=== PATIENT | female | born 2000 | race American Indian/Alaskan Native ===

== ENCOUNTER 2023-03-29 16:19 | Outpatient (REF) | payer MEDICAID, SELFPAY ==
[2023-03-29 17:22] LABS: Basophils Percent Auto 0.2 % (0-2); Eosinophils Percent Auto 0.3 % (0-4); Hemoglobin 13.2 g/dl (12.0-16.0); Imm Gran Abs Auto 0.05 X10*3/uL (0.00-0.03); Imm Gran Pct Auto 0.4 % (0.0-0.4); Lymphocytes Absolute Auto 1.7 X10*3/uL (1.2-4.9); Lymphocytes Percent Auto 14.5 % (20-40); MANUAL DIFF FLAG NO; Mean Corpuscular HGB Conc 33.8 g/dl (31.0-35.0); Mean Corpuscular Hemoglobin 29.1 pg (27.0-33.0); Mean Corpuscular Volume 85.9 fL (80.0-98.0); Mean Platelet Volume 10.6 fL (9.4-12.3); Monocytes Absolute Auto 0.5 X10*3/uL (0.1-1.2); Monocytes Percent Auto 4.2 % (2-11); Neutrophils Absolute Auto 9.6 x10*3/uL (2.0-8.3); Neutrophils Percent Auto 80.4 % (45-73); Platelet Count 275 X10*3/uL (160-400); Red Blood Count 4.54 X10*6/uL (4.20-5.50); Red Cell Distribution Width 12.1 % (11.0-16.0)
[2023-03-29 17:32] LABS: Estimated Average Glucose 85 mg/dL; Hemoglobin A1c % 4.6 % (<6.0)
[2023-03-29 18:52] LABS: Alanine Aminotransferase 14 U/L (0-31); Alkaline Phosphatase 65 U/L (39-117); Anion Gap 14 (12-20); Aspartate Amino Transferase 14 U/L (5-31); Bilirubin Total 0.3 mg/dL (0.0-1.0); Blood Urea Nitrogen 12 mg/dL (9-16); Calcium 9.3 mg/dL (8.4-10.2); Carbon Dioxide 22 mmol/L (22-29); Chloride 107 mmol/L (96-108); Estimated Glomerular Filt Rate > 60; Glucose Random 83 mg/dL (60-115); Potassium 4.6 mmol/L (3.3-5.1); Sodium 138 mmol/L (135-145); Total Protein 7.4 g/dL (6.5-8.0)
[2023-03-29 19:12] LABS: Free T4 (Free Thyroxine) 1.03 ng/dL (0.71-1.85); HCG Quantitative 271 mIU/mL; Thyroid Stimulating Hormone 0.74 uIU/mL (0.32-4.0)
== END 2023-03-29 16:20 | disposition home or self-care (01) ==
LOC: HO.HHCL 16:19
PROVIDERS: Visit Provider Student in an Organized Health Care Education/Training Program
DX: Z00.00 Encounter for general adult medical examination without abnormal findings (principal)
CPT/HCPCS: 36415; 80053; 83036; 84439; 84443; 84702; 85025

== ENCOUNTER 2023-03-30 20:05 | Emergency (ER) | payer MEDICAID, SELFPAY ==
--- NOTE | ~2023-03-30 | US_ITS ---
EXAMINATION: US , LESS THAN 14 WEEKS CLINICAL INFORMATION: Bleeding. test pending COMPARISON: None. TECHNIQUE: Transcutaneous early obstetrical ultrasound. The patient was asked to void completely and reexamined vaginally to better characterize the uterine contents and adnexa FINDINGS: There is no definite intrauterine . There is no pole, cardiac activity, somatic activity, yolk sac or definite gestational sac. Cardiac activity was not present. Somatic activity was not present. A yolk sac is not demonstrated There is no suspicious abnormality in the region of the cervix. The cervix measures approximately 3.5 cm. The uterine contour is smooth. There is no decidual reaction. The endometrium measures approximately 1.3 cm. No focal abnormality of the myometrium. Placenta findings: The placenta is not demonstrated. No large adnexal mass. The right ovary measures approximately 3.4 x 2.8 x 3.0 cm. No suspicious right adnexal mass or collection. The left ovary measures approximately 3.0 x 1.7 x 1.7 cm. No suspicious left adnexal mass or collection. Measurements include: No gestational sac demonstrated No yolk sac demonstrated No pole demonstrated The estimated gestational age based upon menstrual dating is 4 weeks 5 days No cardiac activity demonstrated. survey: Not applicable There is no significant free pelvic fluid. US/US OB pelvic and transvaginal IMPRESSION: No intrauterine gestational sac. No findings which confirm an intrauterine . The patient should be managed on the basis of the history, physical, and serial quantitative beta-hCG
--- NOTE | 2023-03-30 20:11 | ED_ITS ---
HPI - Female Genitourinary General Chief complaint: Vaginal Bleeding Stated complaint: vaginal spotting + Time Seen by Provider: 03/30/23 21:31 Source: patient and old records reviewed Mode of arrival: ambulatory Limitations: no limitations History of Present Illness HPI Narrative: 22-year-old currently about 5 weeks presents to the ER for evaluation of spotting. She states her LMP was 02/25. She found out she was yesterday when she had lab workup done at the [facility] for nausea and headache. She states she had 1 episode of very light vaginal spotting when she wiped today at work. She denies any pelvic pain or cramping. No fever or chills. No vomiting. No passage of blood clots or vaginal discharge. She had an early miscarriage in July of this year as well as a miscarriage at around 3 months gestation a few years ago. MD elicited complaint: vaginal bleeding Pertinent past history: prior miscarriages Onset (ago): hour(s) Location of symptoms: vaginal Severity: mild Vaginal discharge: none Vaginal bleeding: scant Exacerbating factors: none Associated symptoms: denies other symptoms Sexual activity: Yes Patient : Yes Date of Last Menstrual Period: 03/28/23 Related Data : 3 Para: 0 Total number of abortions (spontaneous and elective): 2 Allergies Allergy/AdvReac Type Severity Reaction Status Date / Time famotidine [From Pepcid] Allergy Rash Verified 03/30/23 20:11 Review of Systems Review of Systems: Yes all other systems are reviewed and are negative PMFSH Past Medical History : 3 Para: 0 Total number of abortions (spontaneous and elective): 2 Date of Last Menstrual Period: 03/28/23 Social History Social History Advance Directives: No Advance Directives Information Provided: No Physical Exam Vital Signs: Vital Signs: Last Vital Signs Temp 98.5 F 03/30/23 22:19 Pulse 74 03/30/23 22:19 Resp 16 03/30/23 22:19 BP 119/70 03/30/23 22:19 Pulse Ox 100 03/30/23 22:19 O2 Del Method Room Air 03/30/23 22:19 BMI result Body Mass Index 39.0 Appearance: Alert. Oriented X3. No acute distress. Head: normocephalic, atraumatic. Eyes: Pupils equal, round and reactive to light. ENT: Pharynx normal. No tonsillar swelling or exudate. Neck: Normal inspection. Neck supple. CVS: Normal heart rate and rhythm. Pulses normal. Respiratory: No respiratory distress. Breath sounds normal. Abdomen: Soft and nontender. +BS x4. Pelvic deferred Skin: Skin warm and dry. Normal skin color. Normal skin turgor. No rashes. Extremities: No lower extremity edema. No joint swelling. Neuro/psych: Oriented X 3. grossly normal, nonfocal. Normal speech and cognition. Course Course Course Narrative: RME: 22-year-old female at 4 weeks 5 days gestation c/o bright red vaginal spotting when wiping x today. LMP 02/25/23. Admits was seen at [facility] [place] yesterday and confirmed w/labs as patient was feeling unwell yesterday w/[place] & dizziness. denies discharge or abdominal pain. Admits went to the bathroom just [employer] and did not see blood Labs, UA, Pelvis US ordered Full HPI, ROS and PE to be performed by primary ED provider. Medical Decision Making Medical Decision Making [facility] Narrative: 22-year-old currently 5 weeks presents to the ER for evaluation of vaginal spotting x1 today. She is anxious and nervous due to her history of 2 miscarriages in the past. She has had no pain or cramping. Beta HCG went from 270 to 400 today. US did not show any evidence of IUP or adenxal masses. most likely due to early stage of . cannot rule out ectopic at this time. Importance of follow- up was discussed with the patient as well as possibility of normal verses early miscarriage. Patient was advised on return precautions and will follow-up next week for repeat labs. She is stable for discharge home. Differential Diagnosis Differential Diagnoses: The differential diagnosis associated with the presentation includes early stage of , implantation bleeding, spontaneous miscarriage, ectopic Lab Data [facility] Lab Attestation statement: I reviewed the patient's lab results. Mild anemia, mild leukocytosis, slight increase in beta hCG 03/30/23 20:27 03/30/23 20:27 Labs: Lab Results 03/30/23 03/30/23 03/30/23 Range/Units 20:27 20:27 20:27 WBC 11.1 H (4.8-10.8) X10*3/uL RBC 4.30 (4.20-5.50) X10*6/uL Hgb 12.5 (12.0-16.0) g/dl Hct 36.5 L (37.0-47.0) % MCV 84.9 (80.0-98.0) fL MCH 29.1 (27.0-33.0) pg MCHC 34.2 (31.0-35.0) g/dl RDW 12.2 (11.0-16.0) % Plt Count 242 (160-400) X10*3/uL MPV 10.2 (9.4-12.3) fL Immature Gran % (Auto) 0.2 (0.0-0.4) % Neut % (Auto) 68.8 (45-73) % Lymph % (Auto) 25.6 (20-40) % [place] % (Auto) 4.4 (2-11) % Eos % (Auto) 0.6 (0-4) % Baso % (Auto) 0.4 (0-2) % Lymph # (Auto) 2.8 (1.2-4.9) X10*3/uL [place] # (Auto) 0.5 (0.1-1.2) X10*3/uL Eos # (Auto) 0.1 (0.0-0.4) X10*3/uL Baso # (Auto) 0.0 (0.0-0.2) X10*3/uL Abs Immat Gran (auto) 0.02 (0.00-0.03) X10*3/uL Absolute Neuts (auto) 7.6 (2.0-8.3) x10*3/uL Absolute Nucleated RBC 0.000 (0.0-0.012) X10*3/uL Nucleated RBC % (auto) 0.0 (0.0-0.2) /100WBC Sodium 139 (135-145) mmol/L Potassium 3.6 D (3.3-5.1) mmol/L Chloride 109 H (96-108) mmol/L Carbon Dioxide 24 (22-29) mmol/L Anion Gap 10 L (12-20) BUN 13 (9-16) mg/dL Creatinine 0.73 (0.5-1.4) mg/dL Estim Creat Clear Calc 130.0 Estimated GFR > 60 Random Glucose 124 H (60-115) mg/dL Calcium 9.1 (8.4-10.2) mg/dL Total Bilirubin 0.4 (0.0-1.0) mg/dL Direct Bilirubin 0.2 (0.0-0.5) mg/dL AST 14 (5-31) U/L ALT 12 (0-31) U/L Alkaline Phosphatase 62 (39-117) U/L Total Protein 7.1 (6.5-8.0) g/dL Albumin 3.8 (3.5-5.0) g/dL Lipase 15 (8-78) U/L Beta HCG, Quant 403 mIU/mL Urine Color Urine Appearance Urine pH (5.0-9.0) Ur Specific [place] (1.005-1.025) Urine Protein (Neg-Trace) mg/dL Urine Glucose (UA) (Negative) mg/dL Urine Ketones (Negative) mg/dL Urine Blood (Negative) Urine Nitrite (Negative) Ur Leukocyte Esterase (Negative) Urine RBC (0-2) /HPF Urine WBC (0-5) /HPF Ur Squamous Epith Cells (0-2) /HPF Urine Bacteria (None Seen) Hyaline Casts (0-2) /LPF Blood Type A Positive 03/30/23 Range/Units 22:25 WBC (4.8-10.8) X10*3/uL RBC (4.20-5.50) X10*6/uL Hgb (12.0-16.0) g/dl Hct (37.0-47.0) % MCV (80.0-98.0) fL MCH (27.0-33.0) pg MCHC (31.0-35.0) g/dl RDW (11.0-16.0) % Plt Count (160-400) X10*3/uL MPV (9.4-12.3) fL Immature Gran % (Auto) (0.0-0.4) % Neut % (Auto) (45-73) % Lymph % (Auto) (20-40) % [place] % (Auto) (2-11) % Eos % (Auto) (0-4) % Baso % (Auto) (0-2) % Lymph # (Auto) (1.2-4.9) X10*3/uL [place] # (Auto) (0.1-1.2) X10*3/uL Eos # (Auto) (0.0-0.4) X10*3/uL Baso # (Auto) (0.0-0.2) X10*3/uL Abs Immat Gran (auto) (0.00-0.03) X10*3/uL Absolute Neuts (auto) (2.0-8.3) x10*3/uL Absolute Nucleated RBC (0.0-0.012) X10*3/uL Nucleated RBC % (auto) (0.0-0.2) /100WBC Sodium (135-145) mmol/L Potassium (3.3-5.1) mmol/L Chloride (96-108) mmol/L Carbon Dioxide (22-29) mmol/L Anion Gap (12-20) BUN (9-16) mg/dL Creatinine (0.5-1.4) mg/dL Estim Creat Clear Calc Estimated GFR Random Glucose (60-115) mg/dL Calcium (8.4-10.2) mg/dL Total Bilirubin (0.0-1.0) mg/dL Direct Bilirubin (0.0-0.5) mg/dL AST (5-31) U/L ALT (0-31) U/L Alkaline Phosphatase (39-117) U/L Total Protein (6.5-8.0) g/dL Albumin (3.5-5.0) g/dL Lipase (8-78) U/L Beta HCG, Quant mIU/mL Urine Color Yellow Urine Appearance Cloudy Urine pH 7.5 (5.0-9.0) Ur Specific [place] 1.025 (1.005-1.025) Urine Protein Negative (Neg-Trace) mg/dL Urine Glucose (UA) Negative (Negative) mg/dL Urine Ketones Negative (Negative) mg/dL Urine Blood Small (1+) H (Negative) Urine Nitrite Negative (Negative) Ur Leukocyte Esterase Trace H (Negative) Urine RBC 0-2 (0-2) /HPF Urine WBC 0-5 (0-5) /HPF Ur Squamous Epith Cells 6-10 (0-2) /HPF Urine Bacteria Trace (None Seen) Hyaline Casts 0-2 (0-2) /LPF Blood Type Independent Interpretation I performed an independent interpretation of an: Ultrasound Interpretation: no IUP Radiology Impression Discussion of test interpretation with radiology: I have reviewed the radiologist's reading. Radiologist Impression: EXAMINATION: US , LESS THAN 14 WEEKS CLINICAL INFORMATION: Bleeding. test pending COMPARISON: None. TECHNIQUE: Transcutaneous early obstetrical ultrasound. The patient was asked to void completely and reexamined vaginally to better characterize the uterine contents and adnexa FINDINGS: There is no definite intrauterine . There is no pole, cardiac activity, somatic activity, yolk sac or definite gestational sac. Cardiac activity was not present. Somatic activity was not present. A yolk sac is not demonstrated There is no suspicious abnormality in the region of the cervix. The cervix measures approximately 3.5 cm. The uterine contour is smooth. There is no decidual reaction. The endometrium measures approximately 1.3 cm. No focal abnormality of the myometrium. Placenta findings:? The placenta is not demonstrated. No large adnexal mass.? The right ovary measures approximately 3.4 x 2.8 x 3.0 cm. No suspicious right adnexal mass or collection. The left ovary measures approximately 3.0 x 1.7 x 1.7 cm. No suspicious left adnexal mass or collection. Measurements include: No gestational sac demonstrated No yolk sac demonstrated No pole demonstrated The estimated gestational age based upon menstrual dating is 4 weeks 5 days No cardiac activity demonstrated. survey:? Not applicable There is no significant free pelvic fluid. US/US OB pelvic and transvaginal IMPRESSION: No intrauterine gestational sac. No findings which confirm an intrauterine . ? The patient should be managed on the basis of the history, physical, and serial quantitative beta-hCG ? External Record Review External record reviewed: Prior outpatient labs Critical Care Time Critical Care Time Critical Care Time: No Discharge Plan Discharge Clinical Impression: Early stage of Patient Disposition: Home, Self-Care Instructions: (ED) Additional Instructions: Your hormone increased from 271 yesterday to 403 today Your ultrasound did not show any in the uterus, and this is most likely due to it being too early. Spotting in the 1st trimester can be normal Recommend getting your hormone repeated next week to make sure that it is rising appropriately Follow up with cyber intel planner for further evaluation If you develop new or worsening symptoms call 911 or come back to the ER for further evaluation. Referrals: Sandor Calero MD [Physician] - Stand Alone Forms: Work/School Release Interventions: ED Discharge Assessment Last Done: 03/30/23 22:36 Discharge Date/Time: 03/30/23 22:36
[2023-03-30 20:12] VITALS: BP 110/72; PULSE 98; RESP 18; TEMP 37.2; O2SAT 100; BMI 39.0
[2023-03-30 20:31] LABS: MANUAL DIFF FLAG NO
[2023-03-30 20:32] LABS: Basophils Percent Auto 0.4 % (0-2); Eosinophils Absolute Auto 0.1 X10*3/uL (0.0-0.4); Eosinophils Percent Auto 0.6 % (0-4); Hematocrit 36.5 % (37.0-47.0); Hemoglobin 12.5 g/dl (12.0-16.0); Imm Gran Abs Auto 0.02 X10*3/uL (0.00-0.03); Imm Gran Pct Auto 0.2 % (0.0-0.4); Lymphocytes Absolute Auto 2.8 X10*3/uL (1.2-4.9); Lymphocytes Percent Auto 25.6 % (20-40); Mean Corpuscular HGB Conc 34.2 g/dl (31.0-35.0); Mean Corpuscular Hemoglobin 29.1 pg (27.0-33.0); Mean Corpuscular Volume 84.9 fL (80.0-98.0); Mean Platelet Volume 10.2 fL (9.4-12.3); Monocytes Absolute Auto 0.5 X10*3/uL (0.1-1.2); Monocytes Percent Auto 4.4 % (2-11); Neutrophils Absolute Auto 7.6 x10*3/uL (2.0-8.3); Neutrophils Percent Auto 68.8 % (45-73); Platelet Count 242 X10*3/uL (160-400); Red Cell Distribution Width 12.2 % (11.0-16.0); White Blood Count 11.1 X10*3/uL (4.8-10.8)
[2023-03-30 20:54] LABS: Alanine Aminotransferase 12 U/L (0-31); Albumin Level 3.8 g/dL (3.5-5.0); Alkaline Phosphatase 62 U/L (39-117); Anion Gap 10 (12-20); Aspartate Amino Transferase 14 U/L (5-31); Bilirubin Direct 0.2 mg/dL (0.0-0.5); Bilirubin Total 0.4 mg/dL (0.0-1.0); Blood Urea Nitrogen 13 mg/dL (9-16); Calcium 9.1 mg/dL (8.4-10.2); Carbon Dioxide 24 mmol/L (22-29); Chloride 109 mmol/L (96-108); Estimated Glomerular Filt Rate > 60; Glucose Random 124 mg/dL (60-115); Lipase 15 U/L (8-78); Potassium 3.6 mmol/L (3.3-5.1); Sodium 139 mmol/L (135-145); Total Protein 7.1 g/dL (6.5-8.0)
[2023-03-30 20:55] LABS: HCG Quantitative 403 mIU/mL
[2023-03-30 22:19] VITALS: BP 119/70; PULSE 74; RESP 16; TEMP 36.9; O2SAT 100
[2023-03-30 22:33] LABS: Appearance Urine Cloudy; Color Urine Yellow; Glucose Urine UA Negative (Negative); Leukocyte Esterase Urine Trace (Negative); Nitrite Urine Negative (Negative); PH 7.5 (5.0-9.0); Specific Gravity - Urine 1.025 (1.005-1.025); UMIC TRIGGER UACC YES; Urine Blood Small (1+) (Negative); Urine Ketones Negative (Negative); Urine Protein Negative (Neg-Trace)
[2023-03-30 22:43] LABS: Bacteria Urine Trace (None Seen); Hyaline Casts Urine 0-2 /LPF (0-2); RBC Urine 0-2 /HPF (0-2); WBC Urine 0-5 /HPF (0-5)
== END 2023-03-30 22:36 | disposition home or self-care (01) ==
PROVIDERS: Physician Assistant; Emergency Provider Internal Medicine
DX: O26.851 Spotting complicating pregnancy, first trimester (principal); Z3A.01 Less than 8 weeks gestation of pregnancy
CPT/HCPCS: 36415; 76801; 76817; 80048; 80076; 81001; 83690; 84702; 85025; 86900; 86901; 99283; 99284

== ENCOUNTER 2023-04-01 01:09 | Emergency (ER) | payer MEDICAID, SELFPAY ==
[2023-04-01 01:10] VITALS: BP 123/73; PULSE 76; RESP 16; TEMP 37.2; O2SAT 99; BMI 39.0
--- NOTE | 2023-04-01 01:38 | MHC.EDTECH ---
Patient came in from the waiting room, Patient changed into hospital attire and is awaiting to be seen at this time. Call mcdermott within reach
[2023-04-01 02:35] VITALS: BP 124/69; PULSE 60; RESP 18; TEMP 36.5; O2SAT 99
--- NOTE | 2023-04-01 02:36 | MHC.EDTECH ---
Hourly rounds and vitals completed,patient resting comfortably at this time and call mcdermott within reach.
--- NOTE | 2023-04-01 02:51 | ED.PREGNANCY ---
HPI - General Chief complaint: Vaginal Bleeding Stated complaint: spotting, Time Seen by Provider: 04/01/23 01:59 Source: patient Mode of arrival: ambulatory History of Present Illness HPI Narrative: This is a 22-year-old female who presents, she has a history multiple miscarriages and is noted to be at this time and was evaluated fully on 03/30 to include ultrasound which at that time did not identify a gestational sac. She comes in with similar concerns regarding vaginal spotting but denies any abdominal cramping. Related Data Allergies Allergy/AdvReac Type Severity Reaction Status Date / Time famotidine [From Pepcid] Allergy Rash Verified 03/30/23 20:11 Review of Systems Review of Systems: Pertinent positives and negatives as stated in HPI [facility] Past Medical History Source: nursing notes reviewed Social History Social History Advance Directives: No Advance Directives Information Provided: No Physical Exam Vital Signs: Vital Signs: Last Vital Signs Temp 97.7 F 04/01/23 02:35 Pulse 60 04/01/23 02:35 Resp 18 04/01/23 02:35 BP 124/69 04/01/23 02:35 Pulse Ox 99 04/01/23 02:35 O2 Del Method Room Air 04/01/23 02:35 BMI result Body Mass Index 39.0 VITAL SIGNS: Reviewed. GENERAL: Well developed, well nourished, in no acute distress. HEAD: Normocephalic/atraumatic EYES: PERRLA, EOMI LUNGS: Normal breath sounds. No adventitious sounds or accessory muscle use. SpO2<99> CARDIOVASCULAR: Regular rate and rhythm without noted murmurs ABDOMEN: Soft, non-tender, non-distended with bowel sounds. SKIN: Inspection of the skin reveals no rashes NEUROLOGIC: Alert and oriented x 4. Strength and sensation to light touch were grossly intact x 4. Medical Decision Making Medical Decision Making MDM Narrative: 22-year-old female, a positive, with vaginal spotting I discussed with the patient at bedside and attempted to reassure her that first-trimester bleeding was not uncommon but that I understood that she is concerned. I told her that unfortunately at this time were not able to do anything further regarding her vaginal spotting, but if she began to pass clots then she should return for further evaluation. Until that time I reassured her that we would continue to follow her and that she should call the office of Dr. Calero on Saturday. Discharge Plan Discharge Clinical Impression: Vaginal bleeding during Patient Disposition: Home, Self-Care Instructions: (ED) Additional Instructions: 1. Please follow-up with Dr. Calero as directed on your previous discharge paperwork. I recommend that you call on Saturday. Return to the ER for any worsening symptoms. Referrals: Sandor Calero MD [Physician] -
== END 2023-04-01 03:23 | disposition home or self-care (01) ==
PROVIDERS: Emergency Provider Student in an Organized Health Care Education/Training Program
DX: O20.9 Hemorrhage in early pregnancy, unspecified (principal); Z3A.00 Weeks of gestation of pregnancy not specified
CPT/HCPCS: 99282; 99284

== ENCOUNTER 2023-04-02 10:20 | Outpatient (REF) | payer MEDICAID, SELFPAY | END 2023-04-02 10:21 | disposition home or self-care (01) | LOC: HO.LNP 10:20 | PROVIDERS: Visit Provider Obstetrics & Gynecology | DX: Z13.89 Encounter for screening for other disorder (principal) ==

== ENCOUNTER 2023-04-03 07:53 | Outpatient (REF) | payer MEDICAID, SELFPAY ==
[2023-04-03 08:32] LABS: HCG Quantitative 1845 mIU/mL
== END 2023-04-03 07:54 | disposition home or self-care (01) ==
LOC: HO.LAB 07:53
PROVIDERS: Visit Provider Obstetrics & Gynecology
DX: O26.851 Spotting complicating pregnancy, first trimester (principal); O20.9 Hemorrhage in early pregnancy, unspecified
CPT/HCPCS: 36415; 84702; 99202

== ENCOUNTER 2023-04-03 11:25 | Outpatient (AMB) | payer MEDICAID, SELFPAY ==
--- NOTE | 2023-04-03 11:35 | A.OFFVIS_ITS ---
Intake Vital Signs 04/03/23 11:36 Height 5 ft 2 in Weight 211 lb 10.3 oz BMI 38.7 BP 108/76 Intake Visit Reasons: HCG follow up Statistics Manager Required: No Information Interpreted: non-clinical & clinical Accompanied by: Sister Allergies famotidine [From Pepcid] Allergy (Verified 04/03/23 11:39) Rash Patient : Yes HPI HPI Comments History of Present Illness Details Presenting for ER follow-up . The patient went to the emergency room on 03/30 with spotting after a positive urine test hCG was done was 403, ultrasound showed the following: IMPRESSION: No intrauterine gestational sac. No findings which confirm an intrauterine . ? The patient should be managed on the basis of the history, physical, and serial quantitative beta-hCG Since then the patient did okay with no pelvic cramping or pain or vaginal bleeding/spotting except this morning had 1 episode of spotting. 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 Sexually active: Yes Sexual orientation: Straight/Heterosexual Gender identity: Female Female Reproductive History Menstrual Date of last menstrual period: 02/25/23 control method: none Total pregnancies: 3 Ab spontaneous: 2 Review of Systems Const All systems reviewed & are unremarkable except as noted in HPI and below Physical Exam Vital Signs: Last Vital Signs BP 108/76 04/03/23 11:36 BMI result Body Mass Index 38.7 General: Yes no CVA tenderness External Female Exam: normal external appearance and normal appearance of the urethra Speculum Exam - Vagina: normal appearance of the vagina, normal palpation, no lesions and no masses Speculum Exam - Cervix: normal appearance of the cervix, normal palpation, no lesions, no masses and nontender Bimanual exam- vagina & uterus: normal bimanual exam, normal palpation, uterine size normal, normal palpation, uterine shape normal, No Cervical tenderness present and non-tender Bimanual Exam- Adnexa, other: normal adnexae Back/Spine/Pelvis Back: no CVA tenderness Assessment & Plan Assessment & Plan (1) Spotting in first trimester: Code(s): O26.851 - Spotting complicating , first trimester Plan: GC and chlamydia taken, will repeat hCG and ultrasound in 48 hours. SAB and ectopic warnings given to patient, she is to call or go to emergency room in case of pelvic cramping and /or pain or vaginal spotting/bleeding. vitamin 1 tablet p.o. q.d. All questions answered the patient verbalized understanding Orders: Orders HCG Quantitative Today O20.9 - Hemorrhage in early , unspecified HCG Quantitative 2 Days O26.851 - Spotting complicating , first trimester US OB <= 14 weeks fetus 2 Days O26.851 - Spotting complicating , first trimester Coding Level of Care Code New Pt Level 3 (39243) Diagnoses Spotting in first trimester O26.851
[2023-04-03 11:36] VITALS: BP 108/76; BMI 38.7
== END 2023-04-03 12:13 | disposition home or self-care (01) ==
PROVIDERS: Visit Provider Obstetrics & Gynecology
DX: O26.851 Spotting complicating pregnancy, first trimester (principal)
CPT/HCPCS: 99203

== ENCOUNTER 2023-04-03 12:20 | Outpatient (REF) | payer MEDICAID, SELFPAY ==
[2023-04-03 17:59] LABS: CT PCR NOT DETECTED (Not Detect.); NG PCR NOT DETECTED (Not Detect.)
== END 2023-04-03 12:21 | disposition home or self-care (01) ==
LOC: HO.LNP 12:20
PROVIDERS: Visit Provider Obstetrics & Gynecology
DX: O26.851 Spotting complicating pregnancy, first trimester (principal); O20.9 Hemorrhage in early pregnancy, unspecified; Z20.822 Contact with and (suspected) exposure to COVID-19
CPT/HCPCS: 0353U

== ENCOUNTER 2023-04-05 07:33 | Outpatient (REF) | payer MEDICAID, SELFPAY ==
--- NOTE | ~2023-04-05 | US_ITS ---
EXAMINATION: US OBSTETRICAL ULTRASOUND CLINICAL INFORMATION: Vaginal spotting complicating first trimester of . Clinical dates of 5 weeks, 4 days. COMPARISON: Pelvic ultrasound from 03/30/2023 LMP: 02/25/2023. TECHNIQUE: Sonographic imaging of the pelvis is performed using transabdominal and transvaginal transducers. FINDINGS: The uterus is anteverted and anteflexed. Compared to 03/30/2023, there is interval development of a gestational sac within the endometrium. The mean sac diameter is 0.55 cm, corresponding to estimated gestational age of 5 weeks, 1 day. Small yolk sac is < 0.2 cm. Currently, a pole cannot be visualized. The cervix is normal. The myometrial echotexture is normal. The ovaries have normal echotexture. The right ovary is 3.2 x 2.6 x 3.3 cm and contains a 1.9 cm corpus luteum. The left ovary is 3.1 x 1.5 x 1.9 cm. Color Doppler images show grossly normal appearance of arterial and venous flow within each ovary. No pelvic free fluid. US/US OB pelvic and transvaginal IMPRESSION: * Compared to 03/30/2023, there is interval identification of an intrauterine gestation. The mean sac diameter is 0.55 cm, corresponding to estimated gestational age of 5 weeks, 1 day. * The ovaries are normal. * No pelvic free fluid
[2023-04-05 08:13] LABS: HCG Quantitative 4247 mIU/mL
== END 2023-04-05 07:34 | disposition home or self-care (01) ==
LOC: HO.US 07:33
PROVIDERS: PCP Obstetrics & Gynecology; Visit Provider Obstetrics & Gynecology
DX: O26.851 Spotting complicating pregnancy, first trimester (principal)
CPT/HCPCS: 36415; 76801; 76817; 84702; 99212

== ENCOUNTER 2023-04-05 11:54 | Outpatient (AMB) | payer MEDICAID, SELFPAY ==
[2023-04-05 11:59] VITALS: BP 118/72; BMI 38.7
--- NOTE | 2023-04-05 11:59 | A.OFFVIS_ITS ---
Intake Vital Signs 04/05/23 11:59 Height 5 ft 2 in Weight 211 lb 10.3 oz BMI 38.7 BP 118/72 Intake Visit Reasons: HCG/Ultrasound follow up Type Copy Examiner Required: No Information Interpreted: non-clinical & clinical Accompanied by: Sister Allergies famotidine [From Pepcid] Allergy (Verified 04/05/23 12:00) Rash Patient : Yes HPI HPI Comments History of Present Illness Details Presenting for follow-up hCG on ultrasound with no complaints, manage pelvic cramping , no vaginal spotting/ bleeding. HCG went up from 1845 2 days ago to 4240 today. Blood type A positive. OB ultrasound showed the following: IMPRESSION: * Compared to 03/30/2023, there is interval identification of an intrauterine gestation. The mean sac diameter is 0.55 cm, corresponding to estimated gestational age of 5 weeks, 1 day. * The ovaries are normal. 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 Sexual orientation: Straight/Heterosexual Gender identity: Female Review of Systems Const All systems reviewed & are unremarkable except as noted in HPI and below Reports as per HPI and Reports no additional complaints GI Reports no additional complaints Reports no additional complaints Physical Exam Vital Signs: Last Vital Signs BP 118/72 04/05/23 11:59 BMI result Body Mass Index 38.7 Assessment & Plan Assessment & Plan (1) Early stage of : Comment: With minimal pelvic cramping Code(s): Z34.90 - Encounter for supervision of normal , unspecified, unspecified trimester Plan: Discussed with the patient the results of the hCG and ultrasound. SAB/ectopic warnings given the patient, she is to call or go to emergency room in case of pelvic pain/cramping, vaginal spotting or bleeding. vitamin 1 tablet p.o. q.d.. Will repeat ultrasound for viability in 2 weeks and instructions given the patient to schedule a 2 week ultrasound follow-up appointment. All questions answered, the patient verbalized understanding Orders: Orders US OB pelvic and transvaginal 2 Weeks O26.899 - Other specified related conditions, unspecified trimester, R10.9 - Unspecified abdominal pain, Z32.01 - Encounter for test, result positive Coding Level of Care Code Est Pt Level 3 (67334) Diagnoses Early stage of Z34.90
== END 2023-04-05 12:07 | disposition home or self-care (01) ==
PROVIDERS: Visit Provider Obstetrics & Gynecology
DX: Z34.90 Encounter for supervision of normal pregnancy, unspecified, unspecified trimester (principal)
CPT/HCPCS: 99213

== ENCOUNTER 2023-04-15 12:14 | Outpatient (REF) | payer MEDICAID, SELFPAY ==
--- NOTE | ~2023-04-15 | US_ITS ---
EXAMINATION: US OBSTETRICAL ULTRASOUND CLINICAL INFORMATION: Encounter for test, result positive COMPARISON: OB pelvic ultrasound 04/05/2023 LMP: 02/25/2023. Gestational age by maternal dates is 7 weeks 0 days. Estimated date of delivery by maternal dates is 12/02/2023. TECHNIQUE: Transvaginal imaging was performed. FINDINGS: There is a single intrauterine gestational sac with visible yolk sac, embryo/fetus, and cardiac activity. There is a 0.8 x 0.4 x 0.5 cm fluid collection adjacent to gestational sac consistent with a small subchorionic hemorrhage. HR: 121 beats per minute. CRL (crown rump length): 0.49 cm (6 weeks 2 days +/- 4 days). HAY (estimated date of delivery): 12/07/2023 +/- 4 days. MATERNAL ADNEXA: The right maternal ovary measures 3.6 x 1.9 x 2.4 cm. 1.9 x 1.7 x 1.6 cm complex cyst consistent with a corpus luteum, seen on 04/05/2023. The left maternal ovary measures 2.7 x 1.7 x 1.5 cm. There is no significant maternal adnexal mass. No maternal pelvic ascites. US/US OB pelvic and transvaginal IMPRESSION: 1. Single intrauterine gestation with ultrasound gestational age of 6 weeks 2 days +/- 4 days. 2. Estimated date of delivery is 12/07/2023 +/- 4 days. 3. Small subchorionic hemorrhage.
== END 2023-04-15 12:15 | disposition home or self-care (01) ==
LOC: HO.US 12:14
PROVIDERS: PCP Obstetrics & Gynecology; Visit Provider Obstetrics & Gynecology
DX: O26.899 Other specified pregnancy related conditions, unspecified trimester (principal); R10.9 Unspecified abdominal pain
CPT/HCPCS: 76801; 76817

== ENCOUNTER 2023-04-19 05:44 | Emergency (ER) | payer MEDICAID, SELFPAY ==
[2023-04-19 06:01] VITALS: BMI 38.8
[2023-04-19 06:05] LABS: Hematocrit 39.9 % (37.0-47.0); Hemoglobin 13.3 g/dl (12.0-16.0); Mean Corpuscular HGB Conc 33.3 g/dl (31.0-35.0); Mean Corpuscular Volume 87.1 fL (80.0-98.0); Mean Platelet Volume 10.2 fL (9.4-12.3); Platelet Count 239 X10*3/uL (160-400); Red Blood Count 4.58 X10*6/uL (4.20-5.50); Red Cell Distribution Width 12.3 % (11.0-16.0); White Blood Count 10.1 X10*3/uL (4.8-10.8)
[2023-04-19 06:12] VITALS: BP 118/64; PULSE 81; RESP 17; TEMP 36.7; O2SAT 97
[2023-04-19 06:27] LABS: Alanine Aminotransferase 13 U/L (0-31); Albumin Level 3.8 g/dL (3.5-5.0); Alkaline Phosphatase 53 U/L (39-117); Anion Gap 10 (12-20); Aspartate Amino Transferase 13 U/L (5-31); Bilirubin Total 0.4 mg/dL (0.0-1.0); Blood Urea Nitrogen 12 mg/dL (9-16); Calcium 9.2 mg/dL (8.4-10.2); Carbon Dioxide 25 mmol/L (22-29); Chloride 107 mmol/L (96-108); Creatinine Clr Calc Pharmacy 121.3; Estimated Glomerular Filt Rate > 60; Glucose Random 101 mg/dL (60-115); Potassium 4.6 mmol/L (3.3-5.1); Sodium 137 mmol/L (135-145); Total Protein 7.1 g/dL (6.5-8.0)
[2023-04-19 07:06] VITALS: BP 117/58; PULSE 63; RESP 16; TEMP 36.9; O2SAT 100
--- NOTE | 2023-04-19 07:58 | ED.GENADULT ---
HPI - General Adult General Chief complaint: General Medical Stated complaint: 6 weeks /Vaginal bleeding Time Seen by Provider: 04/19/23 07:58 Source: patient Mode of arrival: ambulatory Limitations: no limitations History of Present Illness HPI narrative: 22-year-old female , LMP 02/25/2023, 7 weeks 5 days by dates who presents emergency department for evaluation of vaginal bleeding. The patient has been having vaginal spotting since 04/05/2023, the patient had it in OBGYN follow-up as well as a follow-up outpatient ultrasound on 04/15/2023 which revealed a single intrauterine with an ultrasound age of 6 weeks and 2 days +/-4 days with a small subchorionic hemorrhage. The patient states that this morning she woke up and she had blood on her legs. She also states she has some very small clots that she noted in her underwear. . She states she cleaned herself up and since that time she has had no further bleeding. Patient denied abdominal pain. She denied nausea, vomiting or weakness. The patient is O-positive. Related Data Home Medications Medication Instructions Recorded Confirmed levothyroxine 50 mcg capsule 50 mcg PO DAILY 04/03/23 vitamin#30 30 mg iron-10 cap PO DAILY 04/03/23 mg iron-folic acid 1 mg-omg3 capsule Allergies Allergy/AdvReac Type Severity Reaction Status Date / Time famotidine [From Pepcid] Allergy Rash Verified 04/05/23 12:00 Review of Systems Review of Systems: Yes all other systems are reviewed and are negative [facility] Past Medical History Attestation statement: The following information was validated with the patient. [facility] Narrative: Past medical history: None. Past surgical history: Cholecystectomy when she was 14 years old. Social history: She denies tobacco, alcohol and drug use. 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 Sexual orientation: Straight/Heterosexual Gender identity: Female Physical Exam ED Vital Signs: Vital Signs - 24 hr 04/19/23 06:12 04/19/23 07:06 Temperature 98.0 F 98.5 F Pulse Rate 81 63 Respiratory Rate 17 16 Blood Pressure 118/64 117/58 L Pulse Oximetry 97 100 Oxygen Delivery Method Room Air Room Air BMI result Body Mass Index 38.8 Vital signs were normal exam General: Awake, alert in no distress Head: Normocephalic, atraumatic EENT: PERRL, Lids normal, sclera normal, conjunctiva normal, nose normal , ears normal, throat without erythema or exudates Neck: Supple, no adenopathy, trachea midline and nontender Lung: breath sounds symmetric, no wheezing, rales or rhonchi Chest: symmetric movement, nontender Heart: regular rate and rhythm, normal S1, S2 no murmurs or rubs Abdomen: soft, non-tender, nondistended, normal bowel sounds Back: no vertebral tenderness, no CVAT Extremities: no deformities, moves all extremities symmetrically Skin: no rashes, no lesion, normal color and warmth Neuro: Awake, alert, oriented, normal speech, cranial nerves intact, moves all extremities symmetrically Psych: Pleasant, cooperative Medical Decision Making Medical Decision Making MDM Narrative: 22-year-old female , LMP 02/25/2023, 7 weeks 5 days by dates who presents emergency department for evaluation of vaginal bleeding. The patient has been having vaginal spotting since 04/05/2023, the patient had it in OBGYN follow-up as well as a follow-up outpatient ultrasound on 04/15/2023 which revealed a single intrauterine with an ultrasound age of 6 weeks and 2 days +/-4 days with a small subchorionic hemorrhage. the patient's physical examination revealed normal vital signs with no abdominal tenderness and she currently reports no active bleeding. following evaluation was ordered:CBC, CMP, quantitative beta-hCG 0924: The patient's CBC was normal. CMP was normal. The patient's quantitative beta-hCG was 45,818 this is increased from 4247 on 04/05/2023. at this time I do not think that the patient needs any further evaluation such as a pelvic exam since she is no longer actively bleeding or a repeat OBGYN less than 14 week ultrasound given the fact that she had an ultrasound 5 days prior that did reveal a small subchorionic bleed. The patient was advised to rest, take Tylenol for pain increase her fluid intake. she will need to follow-up in 4 days with her OBGYN for repeat evaluation, she lab slip for repeat CBC and quantitative beta-hCG prior to her OBGYN appointment. Was given printed and verbal instructions on threatened abortions. Differential Diagnosis Differential Diagnoses: The differential diagnosis associated with the presentation includes Differential diagnosis includes but is not limited to threatened , urinary tract infection, bleeding in early Admission/Observation Consideration of admission/observation: Escalation of care including admission/observation considered Lab Data my interpretation patient's laboratory evaluation as follows: CBC and CMP was normal. Quantitative Was appropriately elevated given her gestational age. 04/19/23 05:59 04/19/23 05:59 Labs: Lab Results 04/19/23 Range/Units 05:59 WBC 10.1 (4.8-10.8) X10*3/uL RBC 4.58 (4.20-5.50) X10*6/uL Hgb 13.3 (12.0-16.0) g/dl Hct 39.9 (37.0-47.0) % MCV 87.1 (80.0-98.0) fL MCH 29.0 (27.0-33.0) pg MCHC 33.3 (31.0-35.0) g/dl RDW 12.3 (11.0-16.0) % Plt Count 239 (160-400) X10*3/uL MPV 10.2 (9.4-12.3) fL Absolute Nucleated RBC 0.000 (0.0-0.012) X10*3/uL Nucleated RBC % (auto) 0.0 (0.0-0.2) /100WBC Sodium 137 (135-145) mmol/L Potassium 4.6 D (3.3-5.1) mmol/L Chloride 107 (96-108) mmol/L Carbon Dioxide 25 (22-29) mmol/L Anion Gap 10 L (12-20) BUN 12 (9-16) mg/dL Creatinine 0.78 (0.5-1.4) mg/dL Estim Creat Clear Calc 121.3 Estimated GFR > 60 Random Glucose 101 (60-115) mg/dL Calcium 9.2 (8.4-10.2) mg/dL Total Bilirubin 0.4 (0.0-1.0) mg/dL AST 13 (5-31) U/L ALT 13 (0-31) U/L Alkaline Phosphatase 53 (39-117) U/L Total Protein 7.1 (6.5-8.0) g/dL Albumin 3.8 (3.5-5.0) g/dL Beta HCG, Quant 14247 mIU/mL Independent Historian Clinical information obtained from an independent historian. History obtained from or confirmed by: Other ( significant other) Chronic Conditions Patient?s care impacted by: Other ( 1st trimester ) Discharge Plan Discharge Clinical Impression: Spotting in first trimester Patient Disposition: Home, Self-Care Instructions: Threatened Miscarriage (ED) Additional Instructions: You had no abdominal tenderness. You reported that your vaginal bleeding has stopped which is reassuring. Your blood work was normal. Your blood test (quantitative beta-hCG) was 45,918-this is appropriate for how far along you are in your (7 weeks and 5 days ) based on your last menstrual period 02/25/2023. You need to rest, do not have any sex, increase your fluid intake and continue to take her vitamins. Follow-up with our OBGYN next week on Saturday or Saturday for re-evaluation, get your blood work done at the outpatient lab prior to seeing the OBGYN doctor. Follow the printed instructions regarding possible miscarriage Follow-up with your doctor in 2 days. Please return to the emergency department if your symptoms get worse or if you develop any symptoms that are concerning to you. Please see the work note Prescriptions: No Action PNV #50-owta-fkemz acid-omega3 30 mg iron-10 mg iron-1 mg capsule PO DAILY levothyroxine 50 mcg capsule 50 mcg PO DAILY Stand Alone Forms: Work/School Release Interventions: ED Discharge Assessment Last Done: 04/19/23 09:24
== END 2023-04-19 09:24 | disposition home or self-care (01) ==
PROVIDERS: Emergency Provider Emergency Medicine Emergency Medical Services
DX: O20.9 Hemorrhage in early pregnancy, unspecified (principal); Z3A.01 Less than 8 weeks gestation of pregnancy; Z79.899 Other long term (current) drug therapy
CPT/HCPCS: 36415; 80053; 84702; 85027; 99283; 99284

== ENCOUNTER 2023-04-22 08:32 | Outpatient (REF) | payer MEDICAID, SELFPAY | END 2023-04-22 08:33 | disposition home or self-care (01) | LOC: HO.LAB 08:32 | PROVIDERS: Visit Provider Emergency Medicine Emergency Medical Services | DX: O46.91 Antepartum hemorrhage, unspecified, first trimester (principal) | CPT/HCPCS: 36415; 84702 ==

== ENCOUNTER → 2023-04-24 13:25 | Outpatient (BNVA) | payer MEDICAID, SELFPAY | PROVIDERS: PCP Obstetrics & Gynecology; Visit Provider Obstetrics & Gynecology ==

== ENCOUNTER → 2023-05-08 10:04 | Outpatient (BNVA) | payer MEDICAID, SELFPAY | PROVIDERS: PCP Obstetrics & Gynecology; Visit Provider Obstetrics & Gynecology ==

== ENCOUNTER 2023-05-14 07:37 | Outpatient (REF) | payer MEDICAID, SELFPAY ==
[2023-05-14 09:59] LABS: Hematocrit 37.6 % (37.0-47.0); Hemoglobin 12.6 g/dl (12.0-16.0); Mean Corpuscular HGB Conc 33.5 g/dl (31.0-35.0); Mean Corpuscular Hemoglobin 29.3 pg (27.0-33.0); Mean Corpuscular Volume 87.4 fL (80.0-98.0); Mean Platelet Volume 10.6 fL (9.4-12.3); Platelet Count 236 X10*3/uL (160-400); Red Cell Distribution Width 12.6 % (11.0-16.0); White Blood Count 9.3 X10*3/uL (4.8-10.8)
[2023-05-14 10:44] LABS: Glucose 1 Hour PP 50gm Dose 101 mg/dL (60-140)
[2023-05-14 10:55] LABS: Syphilis Screen Nonreactive (Nonreactive)
[2023-05-14 11:09] LABS: HBsAGNum1 0.26 S/CO (0.00-0.99); HIV AB/AG Nonreactive (Nonreactive); HIV Num 1 0.07 S/CO (0.00-0.99); Hepatitis B Surface Antigen Negative (Negative); ~HepC Num1 0.08 S/CO (0.00-0.79); ~Hepatitis C Antibody Nonreactive (Nonreactive)
[2023-05-14 11:59] LABS: Amphetamine Screen Urine Not Detected (Not Detect); Barbiturates, Urine Not Detected (Not Detect); Benzodiazepines Screen Urine Not Detected (Not Detect); Cannabinoid Screen Urine Not Detected (Not Detect); Cocaine Screen Urine Not Detected (Not Detect); Fentanyl, urine Not Detected (Not Detect); Opiate Screen Urine Not Detected (Not Detect); Phencyclidine Screen Urine Not Detected (Not Detect)
[2023-05-15 12:57] LABS: BV Int Neg Control Negative (Negative); BV Int Pos Control Positive (Positive)
[2023-05-16 10:28] LABS: Rubella IgG Antibody 6.36 Index
[2023-05-27 16:03] LABS: CF Ethnicity NG; Cystic Fibrosis NEGATIVE (NEGATIVE)
== END 2023-05-14 07:38 | disposition home or self-care (01) ==
LOC: HO.LAB 07:37
PROVIDERS: Advanced Practice Midwife; Visit Provider Obstetrics & Gynecology
DX: O99.281 Endocrine, nutritional and metabolic diseases complicating pregnancy, first trimester (principal); O36.80X0 Pregnancy with inconclusive fetal viability, not applicable or unspecified; O26.851 Spotting complicating pregnancy, first trimester; O26.891 Other specified pregnancy related conditions, first trimester; E03.9 Hypothyroidism, unspecified; R10.9 Unspecified abdominal pain; Z12.4 Encounter for screening for malignant neoplasm of cervix; Z3A.11 11 weeks gestation of pregnancy; Z79.899 Other long term (current) drug therapy
CPT/HCPCS: 80307; 81220; 82950; 85027; 86762; 86780; 86787; 86803; 86850; 86900; 87086; 87340; 87389; 87480; 87510; 87660; 99212

== ENCOUNTER 2023-05-14 11:36 | Outpatient (AMB) | payer MEDICAID, SELFPAY ==
--- NOTE | 2023-05-14 11:40 | A.OFFVISPN_ITS ---
Intake Vital Signs 05/14/23 11:41 Height 5 ft 2 in Weight 213 lb BMI 39.0 BP 120/68 Intake Visit Reasons: OB/pe Spotlight Operator Required: No Information Interpreted: non-clinical & clinical Shield Operator: Shield Operator Present (Jose) Allergies famotidine [From Pepcid] Allergy (Verified 05/14/23 11:44) Rash Medication List - Last Reconciled 05/14/23 by Ariadne Campos CNM levothyroxine 50 mcg PO DAILY PNV #32-qpak-rejwz acid-omega3 30 mg iron-10 mg iron-1 mg caps PO DAILY Is last menstrual period known: Yes Last menstrual period: 02/25/23 Post menopausal: No Patient : Yes [facility] Medical History (Updated 05/14/23 @ 13:17 by Ariadne Campos CNM) Hypothyroidism Surgical History History of cholecystectomy Family History Maternal Grandmother Diabetes Uterus cancer Social History Household Members: Spouse Household Members Other:: brother in law Housing: Apartment Alcohol intake: never Agree to transfusion: Yes Current occupational status: employed 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 Date GA/Weeks Outcome Route Wt Inf Gender Labor Kareen Anesthesia Location Provider Complicate 04/03/21 12 spontaneous 08/06/22 4 spontaneous Questionnaire History History : 3 Visit HAY Calculator Estimated Delivery Date Method Current WG Current Estimate 12/02/23 LMP (Certain) 11w 1d Other Estimates 12/07/23 Ultrasound #1 10w 3d 11/29/23 Ultrasound #2 11w 4d Expected Delivery Route/Plan Vaginal Specific Issues/Plans Hypothyroidism, BMI>30, Mat FH of diabetes, early 1 hr GTT ------ OB Problem List: 22 yr. old ? ? G 3?P 0020? ? ?LMP: 02/25/23 EDC: 12/07/23 ?by 6 09/04 w u/s? ? ?Blood type: A pos Problem List: 1. fam hx dm, bmi>30- early gtv=767, asa after first tri.... 2. hx of sabs x2, first tri spotting, preg confirmed w quants and 3 U/Ss... 3. hypothyroid, on levothyroxine, TSH ordered... 4.-no fht 05/14/23- stat u/s ordered.... Testing: Panorama/and or First Tri screen: ? ?risk-ordered..... NT scan: ordered.... AFP: FAS: Glucose: early =101? 28 wk glucose: ? CBC 1st Tri: ? 28 wk. CBC: GBS: Vaccinations: Flu: Covid: Tdap: Education/Services WIC: CBE: Breast feeding classes: Social Supports/Stressors: Living situation: Supports: Work/school: Transportation: Labor, and Concerns: Labor support: Plan: Feeding Plans: control: OB Visit Log Initial Weight: 195 lb Date -?-?-?-?-?-?-?-?-?-?-?-?- EGA Weight Gest Week Fundal Ht Present FHR move Efface % Edema BP PrePreg We Weight GTT -?-?-?-?-?-?-?-?-?-?-?-?- Glucose LV Protein Blood Type 05/08/23 -?-?-?-?-?-?-?-?-?-?-?-?- 10w 2d 214 lb 4 oz (+19 lb 4 oz) 214 lb 4 oz -?-?-?-?-?-?-?-?-?-?-?-?- 05/14/23 -?-?-?-?-?-?-?-?-?-?-?-?- 11w 1d 213 lb (+18 lb) 0 120/68 213 lb -?-?-?-?-?-?-?-?-?-?-?-?- Notes Visit Date: 05/14/23 Last Updated by: Ariadne Campos CNM Patient is here for a new OB physical visit. She had a sure LMP of 731. She had some spotting right after of test was positive so she was seen in the emergency room and had ended up having 3 ultrasounds because the was so early she has a history of to SABs 1 extremely early and 1 1st trimester in the past. She moved here in the last several months from [place] she is on medicine for hypothyroidism and had it prescribed for her also at the [facility] though she is not sure who her primary care provider is yet. That is where she went for the test when she was nauseous as well. She is happy about the . She has her sister in law with her for the visit. She had her blood work done this morning and her 1 hour GTT is within normal limits at 101 other labs are still pending TSH was added to the labs during this visit. PE was done hirsutisum noted. Patient thought that she had had a Pap smear done in past because of previous pelvic exams but there is none in the system and if she had Pap smears done they were in [place]. Cervix it appears nulliparous though it was very difficult to reach and she needed a large long Graves speculum. Cervix is somewhat reddened with multiple raised red bumps on cervix friable with Pap. Will await Pap smear, requested reflex testing. Unable to auscultate heart. Patient is 11 weeks and 1 day by dates, however 10 weeks and 5 days by ultrasound,( though computer calculates it at 10 weeks 3 days.). Patient sent for stat ultrasound to ascertain viability of . Patient to return here after ultrasound is read stat. Ultrasound was done today crown-rump length consistent with 11 weeks 4 days which is much more consistent with her sure LMP. The outlying ultrasound at 5 weeks and 6 weeks are not consistent with either I am adjusting HAY to her sure LMP which is consistent with today's ultrasound. Patient is very very happy with the ultrasound results which show a viable in the fetus was moving and she got good pictures. I asked her to call in 2 days if she has not heard about her nuchal translucency ultrasound, so that can be scheduled at the appropriate time if it has not already been scheduled. Additionally I discussed taking baby aspirin twice daily secondary to high BMI. Discussed the potential hope for preventative aspect to prevent preeclampsia. Additionally discussed tempering weight gain so that she maintains a healthy balanced diet and minimizes weight gain. Visit Date: 05/08/23 Last Updated by: Anastasia Santos LPN Tyson is here with her sister-in law Hilary today, for her Nurse intake. LMP02/25/23 EDD12/03/23. HAY by u/s on 04/16/23 @6.2 wks =HAY of 12/07/23. Pt has had 2 previous miscarriages. She and her s.o. are very happy about the . She has recently moved here from [place]. Pt is on medication for Hypothyroidism, she also has a mat fh of diabetes and will be getting an early 1 hr gtt with her labs. Pt is currently working, and was given an HAY note and lifting restriction note. Pt has been vaccinated for Covid19 and received 1 booster also. Discussed flu vaccinne with pt also and aware we will offer to her when they come in. Pt is aware that our birthing center is closed and she will be [place] at [facility] and also if she becomes H.R. at any point she would be transferred to a [facility] practice. Discussed with pt the NT u/s and will schedule at [facility]. Discussed next appt will be in office with CNM for her OB physical, and FOB welcome to come to hear heartbeat. Discuused any issues with and need for ED she would be directed to [facility]. Discussed how to reach distribution technician provider after hours. Labs ordered, OB PHYS scheduled. Discussed and given packet. 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 Patient's age 35 years or older as of estimated date of delivery: No 2. Thalassemia (Ukrainian, Malaysian, Mediterranean, or Background); MCV less than 80: No 3. Neural Tube Defect (Meningomyelocele, Spina Bifida, or Anencephaly): No 4. Congenital Heart Defect: No 5. Down Syndrome: No 6. Jorden-Sachs (Ashkenazi Alevism, Cajun, [place]ian [place]): No 7. Jhony Disease (Ashkenazi Alevism): No 8. Familial Dysautonomia (Ashkenazi Alevism): No 9. Sickle Cell Disease or Trait (): No 10. Hemophilia or other blood disorders: No 11. Muscular Dystrophy: No 12. Cystic Fibrosis: No 13. Herminia's Chorea: No 14. Intellectual disability/Autism: Yes 15. Other inherited genetic or chromosomal disorder: No 16. Maternal Metabolic Disorder (EG,TYPE 1 Diabetes, PKU): Yes 17. Patient or baby's father had a child with defects not listed above: No 18. Recurrent loss or a stillbirth: Yes 19. Medications (including supplements, vitamins, herbs or otc drugs)/illicit/recreational drugs/alcohol since last menstrual period: Yes Infection History 1. Live with someone with TB or exposed to TB: No 2. Rash or viral illness since last menstrual period: No 3. Hepatitis B,C: No Other (see comments) Source: [employer] Exam Const Constitutional General: cooperative, healthy appearing, comfortable, no acute distress and well developed Nutritional Appearance: average body habitus and well nourished Constitutional Limitations: no limitations HENMT Head: normocephalic and other Teeth and gingiva: dentition normal and gingiva normal Neck Neck: normal visual inspection Thyroid: Thyroid normal (May be slightly enlarged....) Chest Breast/axilla inspection: normal inspection of the breasts and Other (nipples helga well) Breast/axilla palpation: normal palpation of the breasts and normal palpation of the axillae Resp Effort & Inspection: normal respiratory effort Auscultation: clear to auscultation bilaterally Cardio Heart sounds: S1 normal heart sound present and S2 normal heart sound present GI Inspection (GI): normal to inspection General Exam: Yes no CVA tenderness External Female Exam: normal external appearance Speculum exam - vagina: normal appearance of the vagina, normal discharge and other (normal appearance to vaginal secretions) Speculum Exam - Cervix: normal appearance of the cervix (Reddened friable multiple bumps on cervix nulliparous difficult to reach an) Bimanual exam- vagina & uterus: normal bimanual exam, uterine size normal (consistant w dating), consistency normal (consitent w gestational age), uterine mobility normal and uterine shape normal (c/w gestational age) Bimanual Exam- Adnexa, other: normal adnexae, no masses and normal (teaching re kegels done) Pelvic Support: normal (teaching re kegels done) OB/external & speculum: external exam normal Manual OB Exam: other (cervix =long/thick/closed/ and consistent w obstetric history) Results Reviewed Results Reviewed: [place] [id number] Ultrasound Report Signed Patient: Tyson Huntley MR#: [id number] : 2000 Acct:[id number] Age/Sex: 22 / F ADM Date: 04/15/23 Loc: .US Attending Dr: Sandor Calero MD Ordering Physician: Sandor Calero MD Date of Service: 04/15/23 Procedure(s): US OB pelvic and transvaginal Accession Number(s): [id number] cc: Sandor Calero MD~ EXAMINATION: US OBSTETRICAL ULTRASOUND CLINICAL INFORMATION: Encounter for test, result positive COMPARISON: OB pelvic ultrasound 04/05/2023 LMP: 02/25/2023. Gestational age by maternal dates is 7 weeks 0 days. Estimated date of delivery by maternal dates is 12/02/2023. TECHNIQUE: Transvaginal imaging was performed. FINDINGS: There is a single intrauterine gestational sac with visible yolk sac, embryo/fetus, and cardiac activity. There is a 0.8 x 0.4 x 0.5 cm fluid collection adjacent to gestational sac consistent with a small subchorionic hemorrhage. HR: 121 beats per minute. CRL (crown rump length): 0.49 cm (6 weeks 2 days +/- 4 days). HAY (estimated date of delivery): 12/07/2023 +/- 4 days. MATERNAL ADNEXA: The right maternal ovary measures 3.6 x 1.9 x 2.4 cm. 1.9 x 1.7 x 1.6 cm complex cyst consistent with a corpus luteum, seen on 04/05/2023. The left maternal ovary measures 2.7 x 1.7 x 1.5 cm. There is no significant maternal adnexal mass. No maternal pelvic ascites. US/US OB pelvic and transvaginal IMPRESSION: 1. Single intrauterine gestation with ultrasound gestational age of 6 weeks 2 days +/- 4 days. 2. Estimated date of delivery is 12/07/2023 +/- 4 days. 3. Small subchorionic hemorrhage. Dictated By: Leana West MD Signed By: <Electronically signed by Leana West MD in OV> 04/16/23 1209 DD/ 1230 TD/TT: Supervisor Heat Treating: [place] [id number] Ultrasound Report Signed Patient: Tyson Huntley MR#: [id number] : 2000 Acct:[id number] Age/Sex: 22 / F ADM Date: 05/14/23 Loc: HO.US Attending Dr: Ariadne Campos CNM Ordering Physician: Ariadne Campos CNM Date of Service: 05/14/23 Procedure(s): US OB <= 14 weeks fetus Accession Number(s): [id number] cc: Ariadne Campos CNM~ EXAMINATION: US OBSTETRICAL ULTRASOUND CLINICAL INFORMATION: with inconclusive viability COMPARISON: Pelvic ultrasound 04/15/2023 LMP: 01/28/2023. Gestational age by maternal dates is 11 weeks 1 day. Estimated date of delivery by maternal dates is 12/02/2023. TECHNIQUE: Transvaginal imaging was performed. FINDINGS: There is a single intrauterine gestational sac with embryo/fetus, and cardiac activity. There is no significant subchorionic hemorrhage or hematoma. HR: 167 beats per minute. CRL (crown rump length): 4.68 cm (11 weeks 4 days +/- 4 days). HAY (estimated date of delivery): 11/29/2023 +/- 4 days. MATERNAL ADNEXA: The right maternal ovary measures 3.3 x 2.0 x 2.8 cm. Volume 9.8 mL. The right ovary is normal in appearance. The left maternal ovary measures 3.0 x 1.1 x 2.6 cm. Volume 4.7 mL. The left ovary is normal in appearance. There is no free fluid within the cul-de-sac. US/US OB <= 14 weeks fetus IMPRESSION: 1. Single intrauterine gestation with ultrasound gestational age of 11 weeks 4 days +/- 4 days. 2. Estimated date of delivery is 11/29/2023 +/- 4 days. 3. movement and cardiac activity are observed. Dictated By: Leana West MD Signed By: <Electronically signed by Leana West MD in OV> 05/14/23 1409 DD/ 1400 TD/TT: Assessment & Plan Assessment & Plan (1) Hypothyroidism: Code(s): E03.9 - Hypothyroidism, unspecified Category: Medical (2) Supervision of normal first : Code(s): Z34.00 - Encounter for supervision of normal first , unspecified trimester Category: Medical (3) Encounter to determine viability of : Code(s): O36.80X0 - with inconclusive viability, not applicable or unspecified Category: Medical (4) Spotting in first trimester: Code(s): O26.851 - Spotting complicating , first trimester Category: Medical (5) Cramping affecting , antepartum: Code(s): O26.899 - Other specified related conditions, unspecified trimester; R10.9 - Unspecified abdominal pain Category: Medical (6) Cervical cancer screening: Comment: Multiple bumps on cervix very friable, reflex testing ordered. Code(s): Z12.4 - Encounter for screening for malignant neoplasm of cervix Category: Medical Orders: Orders TSH reflex Free T4 () Today E03.9 - Hypothyroidism, unspecified, Z34.00 - Encounter for supervision of normal first , unspecified trimester Pap Smear Today O26.899 - Other specified related conditions, unspecified trimester, R10.9 - Unspecified abdominal pain Bacterial Vaginosis Panel Today O26.899 - Other specified related conditions, unspecified trimester, R10.9 - Unspecified abdominal pain US OB <= 14 weeks fetus Today E03.9 - Hypothyroidism, unspecified, O26.851 - Spotting complicating , first trimester, O26.899 - Other specified related conditions, unspecified trimester, O36.80X0 - with inconclusive viability, not applicable or unspecified, R10.9 - Unspecified abdominal pain, Z34.00 - Encounter for supervision of normal first , unspecified trimester Medications: New aspirin (Adult Aspirin Regimen) 162 mg (2 x 81 mg) PO DAILY 300 tabs 1RF Coding Level of Care Code [place] Diagnoses Hypothyroidism E03.9 Supervision of normal first Z34.00 Encounter to determine viability of O36.80X0 Spotting in first trimester O26.851 Cramping affecting , antepartum O26.899; R10.9 Cervical cancer screening Z12.4
[2023-05-14 11:41] VITALS: BP 120/68; BMI 39.0
== END 2023-05-14 14:52 | disposition home or self-care (01) ==
PROVIDERS: PCP Obstetrics & Gynecology; Visit Provider Advanced Practice Midwife
DX: E03.9 Hypothyroidism, unspecified (principal); Z34.00 Encounter for supervision of normal first pregnancy, unspecified trimester; O36.80X0 Pregnancy with inconclusive fetal viability, not applicable or unspecified; O26.851 Spotting complicating pregnancy, first trimester; O26.899 Other specified pregnancy related conditions, unspecified trimester; R10.9 Unspecified abdominal pain; Z12.4 Encounter for screening for malignant neoplasm of cervix
CPT/HCPCS: 25942

== ENCOUNTER 2023-05-14 12:40 | Outpatient (REF) | payer MEDICAID, SELFPAY ==
[2023-05-16 23:43] LABS: HPV mRNA E6/E7 rflx Not Detected (Not Detected)
== END 2023-05-14 12:41 | disposition home or self-care (01) ==
LOC: HO.LNP 12:40
PROVIDERS: Visit Provider Advanced Practice Midwife
DX: Z01.419 Encounter for gynecological examination (general) (routine) without abnormal findings (principal); O26.899 Other specified pregnancy related conditions, unspecified trimester; O99.280 Endocrine, nutritional and metabolic diseases complicating pregnancy, unspecified trimester; R10.9 Unspecified abdominal pain; E03.9 Hypothyroidism, unspecified
CPT/HCPCS: 87624; 88142

== ENCOUNTER 2023-05-14 13:04 | Outpatient (REF) | payer MEDICAID, SELFPAY ==
--- NOTE | ~2023-05-14 | US_ITS ---
EXAMINATION: US OBSTETRICAL ULTRASOUND CLINICAL INFORMATION: with inconclusive viability COMPARISON: Pelvic ultrasound 04/15/2023 LMP: 01/28/2023. Gestational age by maternal dates is 11 weeks 1 day. Estimated date of delivery by maternal dates is 12/02/2023. TECHNIQUE: Transvaginal imaging was performed. FINDINGS: There is a single intrauterine gestational sac with embryo/fetus, and cardiac activity. There is no significant subchorionic hemorrhage or hematoma. HR: 167 beats per minute. CRL (crown rump length): 4.68 cm (11 weeks 4 days +/- 4 days). HAY (estimated date of delivery): 11/29/2023 +/- 4 days. MATERNAL ADNEXA: The right maternal ovary measures 3.3 x 2.0 x 2.8 cm. Volume 9.8 mL. The right ovary is normal in appearance. The left maternal ovary measures 3.0 x 1.1 x 2.6 cm. Volume 4.7 mL. The left ovary is normal in appearance. There is no free fluid within the cul-de-sac. US/US OB <= 14 weeks fetus IMPRESSION: 1. Single intrauterine gestation with ultrasound gestational age of 11 weeks 4 days +/- 4 days. 2. Estimated date of delivery is 11/29/2023 +/- 4 days. 3. movement and cardiac activity are observed.
== END 2023-05-14 13:05 | disposition home or self-care (01) ==
LOC: HO.US 13:04
PROVIDERS: Visit Provider Advanced Practice Midwife
DX: O36.80X0 Pregnancy with inconclusive fetal viability, not applicable or unspecified (principal); O26.851 Spotting complicating pregnancy, first trimester; O26.899 Other specified pregnancy related conditions, unspecified trimester; R10.9 Unspecified abdominal pain; E03.9 Hypothyroidism, unspecified
CPT/HCPCS: 76801; 87624; 88142

== ENCOUNTER 2023-06-11 09:59 | Outpatient (AMB) | payer MEDICAID, SELFPAY ==
[2023-06-11 10:18] VITALS: BP 122/64; BMI 40.1
--- NOTE | 2023-06-11 10:18 | A.OFFVIS_ITS ---
Intake Vital Signs 06/11/23 10:18 Height 5 ft 2 in Weight 219 lb BMI 40.1 BP 122/64 Intake Visit Reasons: GONSALO Application Security Specialist Required: No Allergies famotidine [From Pepcid] Allergy (Verified 06/11/23 10:19) Rash Medication List - Last Reconciled 06/11/23 by Ariadne Campos CNM aspirin (Adult Aspirin Regimen) 162 mg (2 x 81 mg) PO DAILY levothyroxine 50 mcg PO DAILY PNV #[id number] acid-[id number] 30 mg iron-10 mg iron-1 mg caps PO DAILY Is last menstrual period known: Yes Last menstrual period: 02/25/23 Post menopausal: No Patient : Yes PFSH Medical History Hypothyroidism Surgical History History of cholecystectomy Family History Maternal Grandmother Diabetes Uterus cancer Social History Household Members: Spouse Household Members Other:: brother in law Both parents involved: Yes Caregiver staying overnight: No Housing: Apartment Alcohol intake: never Agree to transfusion: Yes Patient : Yes Current occupational status: employed 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 Sexual orientation: Straight/Heterosexual Gender identity: Female Female Reproductive History Menstrual Age of Menarche: 7 Duration of menses: 3-5 days Date of last menstrual period: 02/25/23 control method: none Total pregnancies: 3 Ab spontaneous: 2 Date of last pap smear: 05/14/23 (negative) Physical Exam Vital Signs: Last Vital Signs BP 122/64 06/11/23 10:18 BMI result Body Mass Index 40.1 Results AMB Urinalysis, Automated UA Leukoctes 3 Stephany/uL Last Edit by MAUREEN Borja on 06/11/23 10:21 UA Nitrite Negative Last Edit by MAUREEN Borja on 06/11/23 10:21 UA Urobilinogen 0 mg/dL Last Edit by MAUREEN Borja on 06/11/23 10:21 UA Protein 1 mg/dL Last Edit by MAUREEN Borja on 06/11/23 10:21 UA pH 6 Last Edit by MAUREEN Borja on 06/11/23 10:21 UA Blood 0.5 Kvng/uL Last Edit by WAGNER BorjaA on 06/11/23 10:21 UA Specific [place] 1.030 Last Edit by MAUREEN Borja on 06/11/23 10: 21 UA Ketone Positive Last Edit by Jose Raymond Jose on 06/11/23 10:21 .5 Jose Raymond 06/11/23 10:21 UA Bilirubin 0 mg/dL Last Edit by MAUREEN Borja on 06/11/23 10:21 UA Glucose 0 mg/dL Last Edit by MAUREEN Borja on 06/11/23 10:21 Results Reviewed Results Reviewed: Laboratory Last Values Urine pH (Auto) 6 06/11/23 10:20 Specific [place] (Auto) 1.030 06/11/23 10:20 Urine Protein (Auto) 1 mg/dL 06/11/23 10:20 Glucose (UA)(Auto) 0 mg/dL 06/11/23 10:20 Urine Ketones (Auto) Positive 06/11/23 10:20 Urine Blood (Auto) 0.5 Kvng/uL 06/11/23 10:20 Urine Nitrite (Auto) Negative 06/11/23 10:20 Urine Bilirubin (Auto) 0 mg/dL 06/11/23 10:20 Urine Urobilinogen (Auto) 0 mg/dL 06/11/23 10:20 Leukocyte Esterase (Auto) 3 Stephany/uL 06/11/23 10:20 Assessment & Plan Assessment & Plan Orders: Orders AMB Urinalysis Automated Today Z34.00 - Encounter for supervision of normal first , unspecified trimester Coding
--- NOTE | 2023-06-11 10:42 | MHC.OFFVISPN ---
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 Required: No Allergies famotidine [From Pepcid] Allergy (Verified 06/11/23 10:19) Rash Medication List - Last Reconciled 06/11/23 by Ariadne Campos CNM aspirin (Adult Aspirin Regimen) 162 mg (2 x 81 mg) PO DAILY levothyroxine 50 mcg PO DAILY PNV #[id number] acid-omega3 30 mg iron-10 mg iron-1 mg caps PO DAILY Is last menstrual period known: Yes Last menstrual period: 02/25/23 Post menopausal: No Patient : Yes PFSH Medical History Hypothyroidism Surgical History History of cholecystectomy Family History Maternal Grandmother Diabetes Uterus cancer Social History Household Members: Spouse Household Members Other:: brother in law Both parents involved: Yes Caregiver staying overnight: No Housing: Apartment Alcohol intake: never Agree to transfusion: Yes Current occupational status: employed 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 Date GA/Weeks Outcome Route Wt Inf Gender Labor Kareen Anesthesia Location Provider Complicate 04/03/21 12 spontaneous 08/06/22 4 spontaneous Questionnaire History History : 3 Visit HAY Calculator Estimated Delivery Date Method Current WG Current Estimate 12/02/23 LMP (Certain) 15w 1d Other Estimates 12/07/23 Ultrasound #1 14w 3d 11/29/23 Ultrasound #2 15w 4d Expected Delivery Route/Plan Vaginal Specific Issues/Plans Hypothyroidism, BMI>30, Mat FH of diabetes, early 1 hr GTT OB Problem List: 22 yr. old ? ? G 3?P 0020? ? ?LMP: 02/25/23 EDC: 12/07/23 ?by 6 09/04 w u/s? ? ?Blood type: A pos Problem List: 1. fam hx dm, bmi>30- early [id number], asa after first tri.... 2. hx of sabs x2, first tri spotting, preg confirmed w quants and 3 U/Ss... 3. hypothyroid, on levothyroxine, TSH ordered... 4.-no fht 05/14/23- stat u/s ordered.... Testing: Panorama/and or First Tri screen: ? ?risk-ordered..... NT scan: ordered.... AFP: FAS: Glucose: early =101? 28 wk glucose: ? CBC 1st Tri: ? 28 wk. CBC: GBS: Vaccinations: Flu: Covid: Tdap: Education/Services WIC: CBE: Breast feeding classes: Social Supports/Stressors: Living situation: Supports: Work/school: Transportation: Labor, and Concerns: Labor support: Plan: Feeding Plans: control: OB Visit Log Initial Weight: 195 lb Date <del>?</del> EGA Weight Gest Week Fundal Ht Present FHR move Efface % Edema BP PrePreg We Weight GTT <del>?</del> Glucose LV Protein Blood Type 05/08/23 <del>?</del> 10w 2d 214 lb 4 oz (+19 lb 4 oz) 214 lb 4 oz <del>?</del> 05/14/23 <del>?</del> 11w 1d 213 lb (+18 lb) 0 120/68 213 lb <del>?</del> 06/11/23 <del>?</del> 15w 1d 219 lb (+24 lb) 15 150 122/64 219 lb <del>?</del> Notes Visit Date: 06/11/23 Last Updated by: Ariadne Campos CNM Patient is here for her 15 week return OB appointment. She says she is feeling well and doing well she is not having any problems with urination. Her non clean dipstick did show some leukocytes but this is to be expected on a non clean specimen. She had her nuchal translucency ultrasound and that was reassuring and she also had the genetic testing and it was low risk for Down syndrome and trisomy 18. I reviewed diet with her she is craving lots of candy and we discussed moderation and trying not to gain a lot of weight and avoiding excess sugar. She is currently not working because the various reasons suggested continuing staying active and may be considering part-time employment to the season. Her TSH did not get added to last visit's labs. If results can not be found they can be done along with her AFP at the next visit. I am ordering the AFP for the next visit and also her anatomy survey for about 5 weeks from now to be done at [facility]. Reviewed that if all is normal we will need to do any other ultrasounds after that. Her other labs were all within normal limits as well. Reviewed her normal growth and expectations. GONSALO 4 weeks Visit Date: 05/14/23 Last Updated by: Ariadne Campos CNM Patient is here for a new OB physical visit. She had a sure LMP of 731. She had some spotting right after of test was positive so she was seen in the emergency room and had ended up having 3 ultrasounds because the was so early she has a history of to SABs 1 extremely early and 1 1st trimester in the past. She moved here in the last several months from [place] she is on medicine for hypothyroidism and had it prescribed for her also at the [facility] though she is not sure who her primary care provider is yet. That is where she went for the test when she was nauseous as well. She is happy about the . She has her sister in law with her for the visit. She had her blood work done this morning and her 1 hour GTT is within normal limits at 101 other labs are still pending TSH was added to the labs during this visit. PE was done hirsutisum noted. Patient thought that she had had a Pap smear done in past because of previous pelvic exams but there is none in the system and if she had Pap smears done they were in [place]. Cervix it appears nulliparous though it was very difficult to reach and she needed a large long Graves speculum. Cervix is somewhat reddened with multiple raised red bumps on cervix friable with Pap. Will await Pap smear, requested reflex testing. Unable to auscultate heart. Patient is 11 weeks and 1 day by dates, however 10 weeks and 5 days by ultrasound,( though computer calculates it at 10 weeks 3 days.). Patient sent for stat ultrasound to ascertain viability of . Patient to return here after ultrasound is read stat. Ultrasound was done today crown-rump length consistent with 11 weeks 4 days which is much more consistent with her sure LMP. The outlying ultrasound at 5 weeks and 6 weeks are not consistent with either I am adjusting HAY to her sure LMP which is consistent with today's ultrasound. Patient is very very happy with the ultrasound results which show a viable in the fetus was moving and she got good pictures. I asked her to call in 2 days if she has not heard about her nuchal translucency ultrasound, so that can be scheduled at the appropriate time if it has not already been scheduled. Additionally I discussed taking baby aspirin twice daily secondary to high BMI. Discussed the potential hope for preventative aspect to prevent preeclampsia. Additionally discussed tempering weight gain so that she maintains a healthy balanced diet and minimizes weight gain. Visit Date: 05/08/23 Last Updated by: Anastasia Santos LPN Tyson is here with her sister-in law Hilary today, for her Nurse intake. LMP02/25/23 EDD12/03/23. HAY by u/s on 04/16/23 @6.2 wks =HAY of 12/07/23. Pt has had 2 previous miscarriages. She and her s.o. are very happy about the . She has recently moved here from [place]. Pt is on medication for Hypothyroidism, she also has a mat fh of diabetes and will be getting an early 1 hr gtt with her labs. Pt is currently working, and was given an HAY note and lifting restriction note. Pt has been vaccinated for Covid19 and received 1 booster also. Discussed flu vaccinne with pt also and aware we will offer to her when they come in. Pt is aware that our birthing center is closed and she will be delivering at [facility], and also if she becomes H.R. at any point she would be transferred to a [facility] practice. Discussed with pt the NT u/s and will schedule at [facility]. Discussed next appt will be in office with CNM for her OB physical, and FOB welcome to come to hear heartbeat. Discuused any issues with and need for ED she would be directed to [facility]. Discussed how to reach conservation assistant provider after hours. Labs ordered, OB PHYS scheduled. Discussed and given packet. Results AMB Urinalysis, Automated UA Leukoctes 3 Stephany/uL Last Edit by MAUREEN Borja on 06/11/23 10:21 UA Nitrite Negative Last Edit by MAUREEN Borja on 06/11/23 10:21 UA Urobilinogen 0 mg/dL Last Edit by MAUREEN Borja on 06/11/23 10:21 UA Protein 1 mg/dL Last Edit by MAUREEN Borja on 06/11/23 10:21 UA pH 6 Last Edit by MAUREEN Borja on 06/11/23 10:21 UA Blood 0.5 Kvng/uL Last Edit by MAUREEN Borja on 06/11/23 10:21 UA Specific [place] 1.030 Last Edit by MAUREEN Borja on 06/11/23 10:21 UA Ketone Positive Last Edit by MAUREEN Borja on 06/11/23 10:21 .5 Jose Raymond 06/11/23 10:21 UA Bilirubin 0 mg/dL Last Edit by MAUREEN Borja on 06/11/23 10:21 UA Glucose 0 mg/dL Last Edit by MAUREEN Borja on 06/11/23 10:21 Results Reviewed Results Reviewed: Laboratory Last Values Urine pH (Auto) 6 06/11/23 10:20 Specific [place] (Auto) 1.030 06/11/23 10:20 Urine Protein (Auto) 1 mg/dL 06/11/23 10:20 Glucose (UA)(Auto) 0 mg/dL 06/11/23 10:20 Urine Ketones (Auto) Positive 06/11/23 10:20 Urine Blood (Auto) 0.5 Kvng/uL 06/11/23 10:20 Urine Nitrite (Auto) Negative 06/11/23 10:20 Urine Bilirubin (Auto) 0 mg/dL 06/11/23 10:20 Urine Urobilinogen (Auto) 0 mg/dL 06/11/23 10:20 Leukocyte Esterase (Auto) 3 Stephany/uL 06/11/23 10:20 Assessment & Plan Assessment & Plan (1) Supervision of normal first : Code(s): Z34.00 - Encounter for supervision of normal first , unspecified trimester Category: Medical Orders: Orders US OB /maternal detail 5 Weeks Z34.00 - Encounter for supervision of normal first , unspecified trimester AFP Quad Screen 4 Weeks Z34.00 - Encounter for supervision of normal first , unspecified trimester AMB Urinalysis Automated Today Z34.00 - Encounter for supervision of normal first , unspecified trimester Coding Level of Care Code [place] [facility] Supervision of normal first Z34.00
== END 2023-06-11 11:08 | disposition home or self-care (01) ==
LOC: HO.HWS 09:59
PROVIDERS: PCP Obstetrics & Gynecology; Visit Provider Advanced Practice Midwife
DX: Z34.00 Encounter for supervision of normal first pregnancy, unspecified trimester (principal)
CPT/HCPCS: 25942

== ENCOUNTER → 2023-06-11 09:59 | Outpatient (BNVA) | payer MEDICAID, SELFPAY | PROVIDERS: PCP Obstetrics & Gynecology; Visit Provider Advanced Practice Midwife | DX: Z34.82 Encounter for supervision of other normal pregnancy, second trimester (principal); Z3A.15 15 weeks gestation of pregnancy | CPT/HCPCS: 81003; 99212 ==

== ENCOUNTER 2023-07-09 10:29 | Outpatient (REF) | payer MEDICAID, SELFPAY | END 2023-07-09 10:30 | disposition home or self-care (01) | LOC: HO.LAB 10:29 | PROVIDERS: Advanced Practice Midwife; Visit Provider Advanced Practice Midwife | DX: Z23 Encounter for immunization (principal); Z34.92 Encounter for supervision of normal pregnancy, unspecified, second trimester; Z3A.19 19 weeks gestation of pregnancy | CPT/HCPCS: 36415; 81511; 90471; 90686; 99212 ==

== ENCOUNTER 2023-07-09 10:29 | Outpatient (AMB) | payer MEDICAID, SELFPAY ==
[2023-07-09 10:44] VITALS: BP 124/56; BMI 41.1
--- NOTE | 2023-07-09 10:44 | MHC.OFFVISPN ---
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 Allergies famotidine [From Pepcid] Allergy (Verified 07/09/23 10:44) Rash Is last menstrual period known: Yes Last menstrual period: 02/25/23 Post menopausal: No Patient : Yes PFSH Medical History Hypothyroidism Surgical History History of cholecystectomy Family History Maternal Grandmother Diabetes Uterus cancer Social History Household Members: Spouse Household Members Other:: brother in law Both parents involved: Yes Caregiver staying overnight: No Housing: Apartment Alcohol intake: never Agree to transfusion: Yes Current occupational status: employed 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 Date GA/Weeks Outcome Route Wt Inf Gender Labor Kareen Anesthesia Location Provider Complicate 04/03/21 12 spontaneous 08/06/22 4 spontaneous Questionnaire History History : 3 Visit HAY Calculator Estimated Delivery Date Method Current WG Current Estimate 12/02/23 LMP (Certain) 19w 1d Other Estimates 12/07/23 Ultrasound #1 18w 3d 11/29/23 Ultrasound #2 19w 4d Expected Delivery Route/Plan Vaginal Specific Issues/Plans Hypothyroidism, BMI>30, Mat FH of diabetes, early 1 hr GTT OB Problem List: 22 yr. old ? ? G 3?P 0020? ? ?LMP: 02/25/23 EDC: 12/07/23 ?by 6 2/7 w u/s? ? ?Blood type: A pos Problem List: 1. fam hx dm, bmi>30- early ecc=721, asa after first tri.... 2. hx of sabs x2, first tri spotting, preg confirmed w quants and 3 U/Ss... 3. hypothyroid, on levothyroxine, TSH ordered... 4.-no fht 05/14/23- stat u/s ordered.... Testing: Panorama/and or First Tri screen: ? ?risk-ordered..... NT scan: ordered.... AFP: FAS: Glucose: early =101? 28 wk glucose: ? CBC 1st Tri: ? 28 wk. CBC: GBS: Vaccinations: Flu: 07/09/23 Covid: vaccinated x 3 Tdap: Education/Services WIC: enrolled CBE: infromed re: [facility] classes Breast feeding classes: [facility] Social Supports/Stressors: Living situation: partner Cezar Supports: Cezar Work/school: none Transportation: own car Labor, and Concerns: Labor support: Plan: Feeding Plans: breast feeding control: Note author: Kerrie Tejada CNM. 19.1wk. GONSALO. Taking PNV and BASA, Doing well with concerns: After coughing forcefully she noted some vaginal spotting she denies any pain discharge or any other further episodes. Good appetite, stays well hydrated. Denies any LOF, VB, abd. pain or urinary symptoms. Quickening noted. Reviewed: PTL s/s-LOF/abd pain/VB, when to seek emergent care. discomforts, self help measures. FM and when to call for further evaluation. Encouraged a healthy well balanced diet, regular walking/exercise in . Hydrate well, 8-10 glasses of water daily. The ultrasound was not booked for FAS plans to proceed for that will be made today. Flu vaccine today. Educated on and support classes. RTO 4. OB Visit Log Initial Weight: 195 lb Date <del>?</del> EGA Weight Gest Week Fundal Ht Present FHR move Efface % Edema BP PrePreg We Weight GTT <del>?</del> Glucose LV Protein Blood Type 05/08/23 <del>?</del> 10w 2d 214 lb 4 oz (+19 lb 4 oz) 214 lb 4 oz <del>?</del> 05/14/23 <del>?</del> 11w 1d 213 lb (+18 lb) 0 120/68 213 lb <del>?</del> 06/11/23 <del>?</del> 15w 1d 219 lb (+24 lb) 15 150 122/64 219 lb <del>?</del> 07/09/23 <del>?</del> 19w 1d 225 lb (+30 lb) 20 150 124/56 225 lb <del>?</del> Notes Visit Date: 07/09/23 Last Updated by: Kerrie Tejada CNM Note author: Kerrie Tejada CNM. 19.1wk. GONSALO. Taking PNV and BASA, Doing well with concerns: After coughing forcefully she noted some vaginal spotting she denies any pain discharge or any other further episodes. Good appetite, stays well hydrated. Denies any LOF, VB, abd. pain or urinary symptoms. Quickening noted. Reviewed: PTL s/s-LOF/abd pain/VB, when to seek emergent care. discomforts, self help measures. FM and when to call for further evaluation. Encouraged a healthy well balanced diet, regular walking/exercise in . Hydrate well, 8-10 glasses of water daily. The ultrasound was not booked for FAS plans to proceed for that will be made today. Flu vaccine today. Educated on and support classes. RTO 4. Visit Date: 06/11/23 Last Updated by: Ariadne Campos CNM Patient is here for her 15 week return OB appointment. She says she is feeling well and doing well she is not having any problems with urination. Her non clean dipstick did show some leukocytes but this is to be expected on a non clean specimen. She had her nuchal translucency ultrasound and that was reassuring and she also had the genetic testing and it was low risk for Down syndrome and trisomy 18. I reviewed diet with her she is craving lots of candy and we discussed moderation and trying not to gain a lot of weight and avoiding excess sugar. She is currently not working because the various reasons suggested continuing staying active and may be considering part-time employment to the season. Her TSH did not get added to last visit's labs. If results can not be found they can be done along with her AFP at the next visit. I am ordering the AFP for the next visit and also her anatomy survey for about 5 weeks from now to be done at [facility]. Reviewed that if all is normal we will need to do any other ultrasounds after that. Her other labs were all within normal limits as well. Reviewed her normal growth and expectations. GONSALO 4 weeks Visit Date: 05/14/23 Last Updated by: Ariadne Campos CNM Patient is here for a new OB physical visit. She had a sure LMP of 731. She had some spotting right after of test was positive so she was seen in the emergency room and had ended up having 3 ultrasounds because the was so early she has a history of to SABs 1 extremely early and 1 1st trimester in the past. She moved here in the last several months from [place] she is on medicine for hypothyroidism and had it prescribed for her also at the [facility] though she is not sure who her primary care provider is yet. That is where she went for the test when she was nauseous as well. She is happy about the . She has her sister in law with her for the visit. She had her blood work done this morning and her 1 hour GTT is within normal limits at 101 other labs are still pending TSH was added to the labs during this visit. PE was done hirsutisum noted. Patient thought that she had had a Pap smear done in past because of previous pelvic exams but there is none in the system and if she had Pap smears done they were in [place]. Cervix it appears nulliparous though it was very difficult to reach and she needed a large long Graves speculum. Cervix is somewhat reddened with multiple raised red bumps on cervix friable with Pap. Will await Pap smear, requested reflex testing. Unable to auscultate heart. Patient is 11 weeks and 1 day by dates, however 10 weeks and 5 days by ultrasound,( though computer calculates it at 10 weeks 3 days.). Patient sent for stat ultrasound to ascertain viability of . Patient to return here after ultrasound is read stat. Ultrasound was done today crown-rump length consistent with 11 weeks 4 days which is much more consistent with her sure LMP. The outlying ultrasound at 5 weeks and 6 weeks are not consistent with either I am adjusting HAY to her sure LMP which is consistent with today's ultrasound. Patient is very very happy with the ultrasound results which show a viable in the fetus was moving and she got good pictures. I asked her to call in 2 days if she has not heard about her nuchal translucency ultrasound, so that can be scheduled at the appropriate time if it has not already been scheduled. Additionally I discussed taking baby aspirin twice daily secondary to high BMI. Discussed the potential hope for preventative aspect to prevent preeclampsia. Additionally discussed tempering weight gain so that she maintains a healthy balanced diet and minimizes weight gain. Visit Date: 05/08/23 Last Updated by: Anastasia Santos LPN Tyson is here with her sister-in law Hilary today, for her Nurse intake. LMP02/25/23 EDD12/03/23. HAY by u/s on 04/16/23 @6.2 wks =HAY of 12/07/23. Pt has had 2 previous miscarriages. She and her s.o. are very happy about the . She has recently moved here from [place]. Pt is on medication for Hypothyroidism, she also has a mat fh of diabetes and will be getting an early 1 hr gtt with her labs. Pt is currently working, and was given an HAY note and lifting restriction note. Pt has been vaccinated for Covid19 and received 1 booster also. Discussed flu vaccinne with pt also and aware we will offer to her when they come in. Pt is aware that our birthing center is closed and she will be delivering at [facility], and also if she becomes H.R. at any point she would be transferred to a [facility] practice. Discussed with pt the NT u/s and will schedule at [facility]. Discussed next appt will be in office with CNM for her OB physical, and FOB welcome to come to hear heartbeat. Discuused any issues with and need for ED she would be directed to [facility]. Discussed how to reach aircraft air conditioning mechanic provider after hours. Labs ordered, OB PHYS scheduled. Discussed and given packet. Office Procedures Flu Questionnaire Does the patient have a severe egg allergy?: No Does the patient have severe life threatening allergies?: No Does the patient have a fever or illness today?: No Has the patient ever had Guillain-[place] Syndrome?: No Has the patient ever had any past reaction to a flu shot?: No Immunizations flu vacc [id number] 6mos up(PF) 60 mcg(15 mcgx4)/0.5 mL IM syringe Performing Provider: Kerrie Tejada CNM Performing Location: [facility] Administered by: Delia Glasgow on 07/09/23 11:45 Dose Route Admin Location Dispensed Lot Number Expiration Date [facility] Registered Nurse Behavioral [facility] 0.5 mL IM Right Deltoid 0.5 mL [id number] 01/26/24 [id number] [employer]ans VIS Given Date VIS Provided VIS Publication Date 07/09/23 Single Vaccine 21 Eligibility Eligibility Date Funding Source Not [facility] Eligible 07/09/23 Private Coding Level of Care Code [place] Assessment & Plan Assessment & Plan Orders: Orders Influenza [id number] Immunization Today Z34.00 - Encounter for supervision of normal first , unspecified trimester Medications: New PNV,calcium 37-cyfm-lheow acid 27 mg iron- 1 mg ( Vitamins Plus Low Iron) 1 tab PO DAILY 90 tabs 4RF
== END 2023-07-09 11:36 | disposition home or self-care (01) ==
PROVIDERS: PCP Obstetrics & Gynecology; Visit Provider Advanced Practice Midwife
DX: Z34.00 Encounter for supervision of normal first pregnancy, unspecified trimester (principal)
CPT/HCPCS: 25942

== ENCOUNTER 2023-08-09 12:58 | Outpatient (AMB) | payer MEDICAID, SELFPAY ==
--- NOTE | 2023-08-09 13:00 | A.OFFVISPN_ITS ---
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: No Information Interpreted: non-clinical & clinical Accompanied by: Significant Other Allergies famotidine [From Pepcid] Allergy (Verified 08/09/23 13:05) Rash Patient : Yes PFSH Medical History Hypothyroidism Surgical History History of cholecystectomy Family History Maternal Grandmother Diabetes Uterus cancer Social History Household Members: Spouse Household Members Other:: brother in law Both parents involved: Yes Caregiver staying overnight: No Housing: Apartment Alcohol intake: never Agree to transfusion: Yes Current occupational status: employed 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 Date GA/Weeks Outcome Route Wt Inf Gender Labor Kareen Anesthesia Location Provider Complicate 04/03/21 12 spontaneous 08/06/22 4 spontaneous Visit HAY Calculator Estimated Delivery Date Method Current WG Current Estimate 12/02/23 LMP (Certain) 23w 4d Other Estimates 12/07/23 Ultrasound #1 22w 6d 11/29/23 Ultrasound #2 24w 0d Expected Delivery Route/Plan Vaginal Specific Issues/Plans Hypothyroidism, BMI>30, Mat FH of diabetes, OB Problem List: 22 yr. old ? ? G 3?P 0020? ? ?LMP: 02/25/23 EDC: 12/07/23 ?by 6 2/ w u/s? ? ?Blood type: A pos Problem List: 1. fam hx dm, bmi>30- early zjj=337, asa after first tri.... 2. hx of sabs x2, first tri spotting, preg confirmed w quants and 3 U/Ss... 3. hypothyroid, on levothyroxine, TSH ordered 05/14/23-not done since 08/02/23... Testing: Panorama/and or First Tri screen: ? ?risk-ordered..... NT scan: ordered.... AFP: neg Quad screen, FAS: nl-07/31/23 Glucose: early =101?28 wk glucose: ? CBC 1st Tri: ? 28 wk. CBC: GBS: Vaccinations: Flu: 07/09/23 Covid: vaccinated x 3 Tdap: Education/Services WIC: enrolled CBE: infromed re: [employer] classes Breast feeding classes: [facility] Social Supports/Stressors: Living situation: partner Cezar Supports: Cezar Work/school: none Transportation: own car Labor, and Concerns: Labor support: Plan: Feeding Plans: breast feeding control: OB Visit Log Initial Weight: 195 lb Date -?-?-?-?-?-?-?-?-?-?-?-?- EGA Weight Gest Week Fundal Ht Present FHR move Efface % Edema BP PrePreg We Weight GTT -?-?-?-?-?-?-?-?-?-?-?-?- Glucose LV Protein Blood Type 05/08/23 -?-?-?-?-?-?-?-?-?-?-?-?- 10w 2d 214 lb 4 oz (+19 lb 4 oz) 214 lb 4 oz -?-?-?-?-?-?-?-?-?-?-?-?- 05/14/23 -?-?-?-?-?-?-?-?-?-?-?-?- 11w 1d 213 lb (+18 lb) 0 120/68 213 lb -?-?-?-?-?-?-?-?-?-?-?-?- 06/11/23 -?-?-?-?-?-?-?-?-?-?-?-?- 15w 1d 219 lb (+24 lb) 15 150 122/64 219 l b -?-?-?-?-?-?-?-?-?-?-?-?- 07/09/23 -?-?-?-?-?-?-?-?-?-?-?-?- 19w 1d 225 lb (+30 lb) 20 150 124/56 225 lb -?-?-?-?-?-?-?-?-?-?-?-?- 08/09/23 -?-?-?-?-?-?-?-?-?-?-?-?- 23w 4d 224 lb (+29 lb) 24 140 active 110/68 224 lb -?-?-?-?-?-?-?-?-?-?-?-?- Notes Visit Date: 08/09/23 Last Updated by: Kerrie Tejada CNM Note author: Kerrie Tejada CNM. 23.2wk. GONSALO. Taking PNV, Doing well with no concerns. Good appetite, stays well hydrated. Denies any LOF, VB, abd. pain or urinary symptoms. Good FM. Happy she is having a boy. Reviewed: PTL s/s-LOF/Ctx's/VB, or PEC, when to seek emergent care. FMC and when to call for further evaluation. Encouraged a healthy well balanced diet, regular walking/exercise in . Hydrate well, 8-10 glasses of water daily. 28 wk labs and thyroid tests at n/v. RTO 4wks. Visit Date: 07/09/23 Last Updated by: Kerrie Tejada CNM Note author: Kerrie Tejada CNM. 19.1wk. GONSALO. Taking PNV and BASA, Doing well with concerns: After coughing forcefully she noted some vaginal spotting she denies any pain discharge or any other further episodes. Good appetite, stays well hydrated. Denies any LOF, VB, abd. pain or urinary symptoms. Quickening noted. Reviewed: PTL s/s-LOF/abd pain/VB, when to seek emergent care. discomforts, self help measures. FM and when to call for further evaluation. Encouraged a healthy well balanced diet, regular walking/exercise in . Hydrate well, 8-10 glasses of water daily. The ultrasound was not booked for FAS plans to proceed for that will be made today. Flu vaccine today. Educated on and support classes. RTO 4. Visit Date: 06/11/23 Last Updated by: Ariadne Campos CNM Patient is here for her 15 week return OB appointment. She says she is feeling well and doing well she is not having any problems with urination. Her non clean dipstick did show some leukocytes but this is to be expected on a non clean specimen. She had her nuchal translucency ultrasound and that was reassuring and she also had the genetic testing and it was low risk for Down syndrome and trisomy 18. I reviewed diet with her she is craving lots of candy and we discussed moderation and trying not to gain a lot of weight and avoiding excess sugar. She is currently not working because the various reasons suggested continuing staying active and may be considering part-time employment to the season. Her TSH did not get added to last visit's labs. If results can not be found they can be done along with her AFP at the next visit. I am ordering the AFP for the next visit and also her anatomy survey for about 5 weeks from now to be done at [facility]. Reviewed that if all is normal we will need to do any other ultrasounds after that. Her other labs were all within normal limits as well. Reviewed her normal growth and expectations. GONSALO 4 weeks Visit Date: 05/14/23 Last Updated by: Ariadne Campos CNM Patient is here for a new OB physical visit. She had a sure LMP of 731. She had some spotting right after of test was positive so she was seen in the emergency room and had ended up having 3 ultrasounds because the was so early she has a history of to SABs 1 extremely early and 1 1st trimester in the past. She moved here in the last several months from [place] she is on medicine for hypothyroidism and had it prescribed for her also at the [facility] though she is not sure who her primary care provider is yet. That is where she went for the test when she was nauseous as well. She is happy about the . She has her sister in law with her for the visit. She had her blood work done this morning and her 1 hour GTT is within normal limits at 101 other labs are still pending TSH was added to the labs during this visit. PE was done hirsutisum noted. Patient thought that she had had a Pap smear done in past because of previous pelvic exams but there is none in the system and if she had Pap smears done they were in [place]. Cervix it appears nulliparous though it was very difficult to reach and she needed a large long Graves speculum. Cervix is s omewhat reddened with multiple raised red bumps on cervix friable with Pap. Will await Pap smear, requested reflex testing. Unable to auscultate heart. Patient is 11 weeks and 1 day by dates, however 10 weeks and 5 days by ultrasound,( though computer calculates it at 10 weeks 3 days.). Patient sent for stat ultrasound to ascertain viability of . Patient to return here after ultrasound is read stat. Ultrasound was done today crown-rump length consistent with 11 weeks 4 days which is much more consistent with her sure LMP. The outlying ultrasound at 5 weeks and 6 weeks are not consistent with either I am adjusting HAY to her sure LMP which is consistent with today's ultrasound. Patient is very very happy with the ultrasound results which show a viable in the fetus was moving and she got good pictures. I asked her to call in 2 days if she has not heard about her nuchal translucency ultrasound, so that can be scheduled at the appropriate time if it has not already been scheduled. Additionally I discussed taking baby aspirin twice daily secondary to high BMI. Discussed the potential hope for preventative aspect to prevent preeclampsia. Additionally discussed tempering weight gain so that she maintains a healthy balanced diet and minimizes weight gain. Visit Date: 05/08/23 Last Updated by: Anastasia Santos LPN Tyson is here with her sister-in law Hilary today, for her Nurse intake. LMP02/25/23 EDD12/03/23. HAY by u/s on 04/16/23 @6.2 wks =HAY of 12/07/23. Pt has had 2 previous miscarriages. She and her s.o. are very happy about the . She has recently moved here from [place]. Pt is on medication for Hypothyroidism, she also has a mat fh of diabetes and will be getting an early 1 hr gtt with her labs. Pt is currently working, and was given an HAY note and lifting restriction note. Pt has been vaccinated for Covid19 and received 1 booster also. Discussed flu vaccinne with pt also and aware we will offer to her when they come in. Pt is aware that our birthing center is closed and she will be delivering at [facility], and also if she becomes H.R. at any point she would be transferred to a [facility] practice. Discussed with pt the NT u/s and will schedule at [facility]. Discussed next appt will be in office with CNM for her OB physical, and FOB welcome to come to hear heartbeat. Discuused any issues with and need for ED she would be directed to [facility]. Discussed how to reach front of house manager provider after hours. Labs ordered, OB PHYS scheduled. Discussed and given packet. Coding Level of Care Code [place] Assessment & Plan Assessment & Plan Orders: Orders TSH reflex Free T4 () Today Z34.00 - Encounter for supervision of normal first , unspecified trimester Complete Blood Count no Diff Today Z34.00 - Encounter for supervision of normal first , unspecified trimester Syphilis Screen Today Z20.2 - Contact with and (suspected) exposure to infections with a predominantly sexual mode of transmission, Z34.00 - Encounter for supervision of normal first , unspecified trimester Glucose 1 Hour PP 50gm Dose Today Z34.00 - Encounter for supervision of normal first , unspecified trimester
[2023-08-09 13:04] VITALS: BP 110/68; BMI 41.0
== END 2023-08-09 13:22 | disposition home or self-care (01) ==
LOC: HO.HWS 12:58
PROVIDERS: Visit Provider Advanced Practice Midwife
DX: Z34.90 Encounter for supervision of normal pregnancy, unspecified, unspecified trimester (principal)
CPT/HCPCS: 25942

== ENCOUNTER → 2023-08-09 12:58 | Outpatient (BNVA) | payer MEDICAID, SELFPAY | PROVIDERS: Visit Provider Advanced Practice Midwife | DX: O09.292 Supervision of pregnancy with other poor reproductive or obstetric history, second trimester (principal); O99.282 Endocrine, nutritional and metabolic diseases complicating pregnancy, second trimester; E03.9 Hypothyroidism, unspecified; Z79.899 Other long term (current) drug therapy; Z3A.23 23 weeks gestation of pregnancy | CPT/HCPCS: 99212 ==

== ENCOUNTER 2023-09-06 13:17 | Outpatient (AMB) | payer MEDICAID, SELFPAY ==
--- NOTE | 2023-09-06 13:26 | A.OFFVISPN_ITS ---
Intake Vital Signs 09/06/23 13:31 Height 5 ft 2 in Weight 236 lb BMI 43.2 BP 110/60 Intake Visit Reasons: GONSALO 27 weeks Intake Note: Having a lot of back pains Hydrodynamics Teacher Required: No Allergies famotidine [From Pepcid] Allergy (Verified 09/06/23 13:31) Rash Medication List - Last Reconciled 09/06/23 by Ariadne Campos CNM aspirin (Adult Aspirin Regimen) 162 mg (2 x 81 mg) PO DAILY levothyroxine 50 mcg PO DAILY PNV,calcium 85-tzpn-jfqln acid 27 mg iron- 1 mg ( Vitamins Plus Low Iron) 1 tab PO DAILY Post menopausal: No Patient : Yes PFSH Medical History Hypothyroidism Surgical History History of cholecystectomy Family History Maternal Grandmother Diabetes Uterus cancer Social History Household Members: Spouse Household Members Other:: brother in law Both parents involved: Yes Caregiver staying overnight: No Housing: Apartment Alcohol intake: never Agree to transfusion: Yes Current occupational status: employed 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 Date GA/Weeks Outcome Route Wt Inf Gender Labor Kareen Anesthesia Location Provider [facility] 04/03/21 12 spontaneous 08/06/22 4 spontaneous Questionnaire History History : 1 Visit HAY Calculator Estimated Delivery Date Method Current WG Current Estimate 12/02/23 LMP (Certain) 27w 4d Other Estimates 12/07/23 Ultrasound #1 26w 6d 11/29/23 Ultrasound #2 28w 0d Expected Delivery Route/Plan Vaginal Specific Issues/Plans Hypothyroidism, BMI>30, Mat FH of diabetes, OB Problem List: 22 yr. old ? ? G 3?P 0020? ? ?LMP: 02/25/23 EDC: 12/07/23 ?by 6 2/7 w u/s? ? ?Blood type: A pos Problem List: 1. fam hx dm, bmi>30- early vot=617, asa after first tri.... 2. hx of sabs x2, first tri spotting, preg confirmed w quants and 3 U/Ss... 3. hypothyroid, on levothyroxine, TSH ordered 05/14/23-not done since 08/02/23... Testing: Panorama/and or First Tri screen: ? ?risk-ordered..... NT scan: ordered.... AFP: neg Quad screen, FAS: nl-07/31/23 Glucose: early =101?28 wk glucose: ? CBC 1st Tri: ? 28 wk. CBC: GBS: Vaccinations: Flu: 07/09/23 Covid: vaccinated x 3 Tdap: Education/Services WIC: enrolled CBE: infromed re: [facility] classes Breast feeding classes: [facility] Social Supports/Stressors: Living situation: partner Cezar Supports: Cezar Work/school: none Transportation: own car Labor, and Concerns: Labor support: Plan: Infant Feeding Plans: breast feeding control: OB Visit Log Initial Weight: 195 lb Date -?-?-?-?-?-?-?-?-?-?-?-?- EGA Weight Gest Week Fundal Ht Present FHR move Efface % Edema BP PrePreg We Weight GTT -?-?-?-?-?-?-?-?-?-?-?-?- Glucose LV Protein Blood Type 05/08/23 -?-?-?-?-?-?--?-?-?-?-?-?- 10w 2d 214 lb 4 oz (+19 lb 4 oz) 214 lb 4 oz -?-?-?-?-?-?-?-?-?-?-?-?- 05/14/23 -?-?-?-?-?-?-?-?-?-?-?-?- 11w 1d 213 lb (+18 lb) 0 120/68 213 lb -?-?-?-?-?-?-?-?-?-?-?-?- 06/11/23 -?-?-?-?-?-?-?-?-?-?-?-?- 15w 1d 219 lb (+24 lb) 15 150 122/64 219 l b -?-?-?-?-?-?-?-?-?-?-?-?- 07/09/23 -?-?-?-?-?-?-?-?-?-?-?-?- 19w 1d 225 lb (+30 lb) 20 150 124/56 225 lb -?-?-?-?-?-?-?-?-?-?-?-?- 08/09/23 -?-?-?-?-?-?-?-?-?-?-?-?- 23w 4d 224 lb (+29 lb) 24 140 active 110/68 224 lb -?-?-?-?-?-?-?-?-?-?-?-?- 09/06/23 -?-?-?-?-?-?-?-?-?-?-?-?- 27w 4d 236 lb (+41 lb) 31 140 active 110/60 236 lb -?-?-?-?--?-?-?-?-?-?-?-?- Notes Visit Date: 09/06/23 Last Updated by: Ariadne Campos CNM Is reappointed today to the [facility]. Patient is here at 27 weeks 4 days because of the rescheduling she had intended to do the lab work before her visit at the [address] [place] [address] but had to rearrange her day she will get the labs done on Saturday. Some discussion spent trying to ensure/discover who patient's providers are now to manage her thyroid issues and it develops that the person she was going to see has been rescheduled so she does not have an appointment pending for that there is of TSH with reflex T4 ordered a in the system along with her CBC glucose screen and syphilis screen so she will do those tests on Saturday now. We will manage accordingly to the results palpation of thyroid felt within normal limits today by this provider. Reviewed her normal FA S ultrasound that was done in July at [facility]. Discussed moderation of weight gain if possible. Discussed reasons to call. Also reviewed upcoming vaccinations and to consider the Tdap and vaccine for RSV which would need to be obtained at a pharmacy. Fundal height 31 secondary to maternal adipose. The patient's only complaint was right sacroiliac pain. Reviewed several stretches that can be of some benefit and recommend trying them every day to see if that will help. We will see her in 2 weeks. She does have transportation to [facility]. Visit Date: 08/09/23 Last Updated by: Kerrie Tejada CNM Note author: Kerrie Tejada CNM. 23.2wk. GONSALO. Taking PNV, Doing well with no concerns. Good appetite, stays well hydrated. Denies any LOF, VB, abd. pain or urinary symptoms. Good FM. Happy she is having a boy. Reviewed: PTL s/s-LOF/Ctx's/VB, or PEC, when to seek emergent care. FMC and when to call for further evaluation. Encouraged a healthy well balanced diet, regular walking/exercise in . Hydrate well, 8-10 glasses of water daily. 28 wk labs and thyroid tests at n/v. RTO 4wks. Visit Date: 07/09/23 Last Updated by: Kerrie Tejada CNM Note author: Kerrie Tejada CNM. 19.1wk. GONSALO. Taking PNV and BASA, Doing well with concerns: After coughing forcefully she noted some vaginal spotting she denies any pain discharge or any other further episodes. Good appetite, stays well hydrated. Denies any LOF, VB, abd. pain or urinary symptoms. Quickening noted. Reviewed: PTL s/s-LOF/abd pain/VB, when to seek emergent care. discomforts, self help measures. FM and when to call for further evaluation. Encouraged a healthy well balanced diet, regular walking/exercise in . Hydrate well, 8-10 glasses of water daily. The ultrasound was not booked for FAS plans to proceed for that will be made today. Flu vaccine today. Educated on and support classes. RTO 4. Visit Date: 06/11/23 Last Updated by: Ariadne Campos CNM Patient is here for her 15 week return OB appointment. She says she is feeling well and doing well she is not having any problems with urination. Her non clean dipstick did show some leukocytes but this is to be expected on a non clean specimen. She had her nuchal translucency ultrasound and that was reassuring and she also had the genetic testing and it was low risk for Down syndrome and trisomy 18. I reviewed diet with her she is craving lots of candy and we discussed moderation and trying not to gain a lot of weight and avoiding excess sugar. She is currently not working because the various reasons suggested continuing staying active and may be considering part-time employment to the season. Her TSH did not get added to last visit's labs. If results can not be found they can be done along with her AFP at the next visit. I am ordering the AFP for the next visit and also her anatomy survey for about 5 weeks from now to be done at [facility]. Reviewed that if all is normal we will need to do any other ultrasounds after that. Her other labs were all w ithin normal limits as well. Reviewed her normal growth and expectations. GONSALO 4 weeks Visit Date: 05/14/23 Last Updated by: Ariadne Campos CNM Patient is here for a new OB physical visit. She had a sure LMP of 731. She had some spotting right after of test was positive so she was seen in the emergency room and had ended up having 3 ultrasounds because the was so early she has a history of to SABs 1 extremely early and 1 1st trimester in the past. She moved here in the last several months from [place] she is on medicine for hypothyroidism and had it prescribed for her also at the [facility] though she is not sure who her primary care provider is yet. That is where she went for the test when she was nauseous as well. She is happy about the . She has her sister in law with her for the visit. She had her blood work done this morning and her 1 hour GTT is within normal limits at 101 other labs are still pending TSH was added to the labs during this visit. PE was done hirsutisum noted. Patient thought that she had had a Pap smear done in past because of previous pelvic exams but there is none in the system and if she had Pap smears done they were in [place]. Cervix it appears nulliparous though it was very difficult to reach and she needed a large long Graves speculum. Cervix is somewhat reddened with multiple raised red bumps on cervix friable with Pap. Will await Pap smear, requested reflex testing. Unable to auscultate heart. Patient is 11 weeks and 1 day by dates, however 10 weeks and 5 days by ultrasound,( though computer calculates it at 10 weeks 3 days.). Patient sent for stat ultrasound to ascertain viability of . Patient to return here after ultrasound is read stat. Ultrasound was done today crown-rump length consistent with 11 weeks 4 days which is much more consistent with her sure LMP. The outlying ultrasound at 5 weeks and 6 weeks are not consistent with either I am adjusting HAY to her sure LMP which is consistent with today's ultrasound. Patient is very very happy with the ultrasound results which show a viable in the fetus was moving and she got good pictures. I asked her to call in 2 days if she has not heard about her nuchal translucency ultrasound, so that can be scheduled at the appropriate time if it has not already been scheduled. Additionally I discussed taking baby aspirin twice daily secondary to high BMI. Discussed the potential hope for preventative aspect to prevent preeclampsia. Additionally discussed tempering weight gain so that she maintains a healthy balanced diet and minimizes weight gain. Visit Date: 05/08/23 Last Updated by: Anastasia Santos LPN Tyson is here with her sister-in law Hilary today, for her Nurse intake. LMP02/25/23 EDD12/03/23. HAY by u/s on 04/16/23 @6.2 wks =HAY of 12/07/23. Pt has had 2 previous miscarriages. She and her s.o. are very happy about the . She has recently moved here from [place]. Pt is on medication for Hypothyroidism, she also has a mat fh of diabetes and will be getting an early 1 hr gtt with her labs. Pt is currently working, and was given an HAY note and lifting restriction note. Pt has been vaccinated for Covid19 and received 1 booster also. Discussed flu vaccinne with pt also and aware we will offer to her when they come in. Pt is aware that our birthing center is closed and [place] [facility] and also if she becomes H.R. at any point she would be transferred to a [facility] [place]. Discussed with pt the NT u/s and will schedule [place] [facility]. Discussed next appt will be in office with CNM for her OB physical, and FOB welcome to come to hear heartbeat. Discuused any issues with and need for ED she would be directed [place] [facility]. Discussed how to reach aviation safety officer provider after hours. Labs ordered, OB PHYS scheduled. Discussed and given packet. Coding Level of Care Code [place] Diagnoses Supervision of normal first Z34.00 Hypothyroidism E03.9 Assessment & Plan Assessment & Plan (1) Supervision of normal first : Code(s): Z34.00 - Encounter for supervision of normal first , unspecified trimester Category: Medical (2) Hypothyroidism: Code(s): E03.9 - Hypothyroidism, unspecified Category: Medical
[2023-09-06 13:31] VITALS: BP 110/60; BMI 43.2
== END 2023-09-06 14:43 | disposition home or self-care (01) ==
PROVIDERS: Visit Provider Advanced Practice Midwife
DX: Z34.00 Encounter for supervision of normal first pregnancy, unspecified trimester (principal); E03.9 Hypothyroidism, unspecified
CPT/HCPCS: 25942

== ENCOUNTER → 2023-09-06 13:17 | Outpatient (BNVA) | payer MEDICAID, SELFPAY | PROVIDERS: Visit Provider Advanced Practice Midwife | DX: O99.282 Endocrine, nutritional and metabolic diseases complicating pregnancy, second trimester (principal); Z3A.27 27 weeks gestation of pregnancy | CPT/HCPCS: 99212 ==

== ENCOUNTER 2023-09-09 09:26 | Outpatient (REF) | payer MEDICAID, SELFPAY ==
[2023-09-09 11:10] LABS: Hematocrit 36.1 % (37.0-47.0); Hemoglobin 12.2 g/dl (12.0-16.0); Mean Corpuscular HGB Conc 33.8 g/dl (31.0-35.0); Mean Corpuscular Hemoglobin 29.8 pg (27.0-33.0); Mean Platelet Volume 10.3 fL (9.4-12.3); Platelet Count 227 X10*3/uL (160-400); White Blood Count 11.7 X10*3/uL (4.8-10.8)
[2023-09-09 12:46] LABS: Glucose 1 Hour PP 50gm Dose 137 mg/dL (60-140)
[2023-09-09 12:59] LABS: Syphilis Screen Nonreactive (Nonreactive); TSH reflex Free T4 (Prenatal) 1.55 uIU/mL (0.32-4.0)
== END 2023-09-09 09:27 | disposition home or self-care (01) ==
LOC: HO.LAB 09:26
PROVIDERS: Visit Provider Advanced Practice Midwife
DX: O99.810 Abnormal glucose complicating pregnancy (principal); Z3A.00 Weeks of gestation of pregnancy not specified
CPT/HCPCS: 36415; 82950; 85027; 86780

== ENCOUNTER 2023-09-20 08:55 | Outpatient (AMB) | payer MEDICAID, SELFPAY ==
[2023-09-20 09:03] VITALS: BP 111/66; BMI 43.6
--- NOTE | 2023-09-20 09:03 | A.OFFVISPN_ITS ---
Intake Vital Signs 09/20/23 09:03 Height 5 ft 2 in Weight 238 lb 3 oz BMI 43.6 BP 111/66 Intake Visit Reasons: GONSALO Contribution Solicitor Required: No Information Interpreted: non-clinical & clinical Accompanied by: Self / Same As Patient Allergies famotidine [From Pepcid] Allergy (Verified 09/06/23 13:31) Rash Is last menstrual period known: Yes Patient : Yes (29 weeks) PFSH Medical History Hypothyroidism Surgical History History of cholecystectomy Family History Maternal Grandmother Diabetes Uterus cancer Social History Household Members: Spouse Household Members Other:: brother in law Both parents involved: Yes Caregiver staying overnight: No Housing: Apartment Alcohol intake: never Agree to transfusion: Yes Current occupational status: employed 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 Date GA/Weeks Outcome Route Wt Inf Gender Labor Kareen Anesthesia Location Provider Complicate 04/03/21 12 spontaneous 08/06/22 4 spontaneous Visit HAY Calculator Estimated Delivery Date Method Current WG Current Estimate 12/02/23 LMP (Certain) 29w 4d Other Estimates 12/07/23 Ultrasound #1 28w 6d 11/29/23 Ultrasound #2 30w 0d Expected Delivery Route/Plan Vaginal Specific Issues/Plans Hypothyroidism, BMI>30, Mat FH of diabetes, OB Problem List: 22 yr. old ? ? G 3?P 0020? ? ?LMP: 02/25/23 EDC: 12/07/23 ?by 6 2/7 w u/s? ? ?Blood type: A pos Problem List: 1. fam hx dm, bmi>30- early dnn=312, asa after first tri.... 2. hx of sabs x2, first tri spotting, preg confirmed w quants and 3 U/Ss... 3. hypothyroid, on levothyroxine, TSH ordered 05/14/23- Testing: Panorama/and or First Tri screen: ? ?risk-ordered..... NT scan: ordered.... AFP: neg Quad screen, FAS: nl-07/31/23 Glucose: early =101?28 wk glucose: ?137- 3hrgtt= CBC 1st Tri: ? 28 wk. CBC: GBS: Vaccinations: Flu: 07/09/23 Covid: vaccinated x 3 Tdap: Education/Services WIC: enrolled CBE: [facility] classes Breast feeding classes: [facility] Social Supports/Stressors: Living situation: partner Cezar Supports: Cezar Work/school: none Transportation: own car Labor, and Concerns: Labor support: Cezar, mom Plan: Feeding Plans: breast feeding control: OB Visit Log Initial Weight: 195 lb Date -?-?-?-?-?-?-?-?-?-?-?-?- EGA Weight Gest Week Fundal Ht Present FHR move Efface % Edema BP PrePreg We Weight GTT -?-?-?-?-?-?-?-?-?-?-?-?- Glucose LV Protein Blood Type 05/08/23 -?-?-?-?-?-?-?-?-?-?-?-?- 10w 2d 214 lb 4 oz (+19 lb 4 oz) 214 lb 4 oz -?-?-?-?-?-?-?-?-?-?-?-?- 05/14/23 -?-?-?-?-?-?-?-?-?-?-?-?- 11w 1d 213 lb (+18 lb) 0 120/68 213 lb -?-?-?-?-?-?-?-?-?-?-?-?- 06/11/23 -?-?-?-?-?-?-?-?-?-?--?-?- 15w 1d 219 lb (+24 lb) 15 150 122/64 219 l b -?-?-?-?-?-?-?-?-?-?-?-?- 07/09/23 -?-?-?-?-?-?-?-?-?-?-?-?- 19w 1d 225 lb (+30 lb) 20 150 124/56 225 lb -?-?-?-?-?-?-?-?-?-?-?-?- 08/09/23 -?-?-?-?-?-?-?-?-?-?-?-?- w 4d 224 lb (+29 lb) 24 140 active 110/68 224 lb -?-?-?-?-?-?-?-?-?-?-?-?- 09/06/23 -?-?-?-?-?-?-?-?-?-?-?-?- 27w 4d 236 lb (+41 lb) 31 140 active 110/60 236 lb -?-?-?-?-?-?-?-?-?-?-?-?- 09/20/23 -?-?-?-?-?-?-?-?-?-?-?-?- 29w 4d 238 lb 3 oz (+43 lb 3 oz) 32 150 active 111/66 238 lb 3 oz -?-?-?-?-?-?-?-?-?-?-?-?- Notes Visit Date: 09/20/23 Last Updated by: Kerrie Tejada CNM Note author: Kerrie Tejada CNM. 29.4wk. GONSALO. Taking PNV/BASA, Doing well with no concerns. Good appetite, stays well hydrated. Denies any LOF, VB, abd. pain or urinary symptoms. 1ow=685, plan 3hr gtt. EPDS=10, no on #10. Advised counseling and to notify office if any increase concerns, symptoms. Back ache improved w/stretches, heat. CBE link for [facility] given. Reviewed: PTL s/s-LOF/Ctx's/VB, when to seek emergent care. discomforts, self help measures. FM and when to call the office for further eval. Encouraged a healthy well balanced diet, regular walking/exercise in . Hydrate well, 8-10 glasses of water daily. S>D, consider US n/v. RTO 2wks. Visit Date: 09/06/23 Last Updated by: Ariadne Campos CNM Is reappointed today to the [facility] office. Patient is here at 27 weeks 4 days because of the rescheduling she had intended to do the lab work before her visit at the [facility] office but had to rearrange her day she will get the labs done on Saturday. Some discussion spent trying to ensure/discover who patient's providers are now to manage her thyroid issues and it develops that the person she was going to see has been rescheduled so she does not have an appointment pending for that there is of TSH with reflex T4 ordered a in the system along with her CBC glucose screen and syphilis screen so she will do those tests on Saturday now. We will manage accordingly to the results palpation of thyroid felt within normal limits today by this provider. Reviewed her normal FA S ultrasound that was done in July at [facility]. Discussed moderation of weight gain if possible. Discussed reasons to call. Also reviewed upcoming vaccinations and to consider the Tdap and vaccine for RSV which would need to be obtained at a pharmacy. Fundal height 31 secondary to maternal adipose. The patient's only complaint was right sacroiliac pain. Reviewed several stretches that can be of some benefit and recommend trying them every day to see if that will help. We will see her in 2 weeks. She does have transportation to [facility]. Visit Date: 08/09/23 Last Updated by: Kerrie Tejada CNM Note author: Kerrie Tejada CNM. 23.2wk. GONSALO. Taking PNV, Doing well with no concerns. Good appetite, stays well hydrated. Denies any LOF, VB, abd. pain or urinary symptoms. Good FM. Happy she is having a boy. Reviewed: PTL s/s-LOF/Ctx's/VB, or PEC, when to seek emergent care. [facility] and when to call for further evaluation. Encouraged a healthy well balanced diet, regular walking/exercise in . Hydrate well, 8-10 glasses of water daily. 28 wk labs and thyroid tests at n/v. RTO 4wks. Visit Date: 07/09/23 Last Updated by: Kerrie Tejada CNM Note author: Kerrie Tejada CNM. 19.1wk. GONSALO. Taking PNV and BASA, Doing well with concerns: After coughing forcefully she noted some vaginal spotting she denies any pain discharge or any other further episodes. Good appetite, stays well hydrated. Denies any LOF, VB, abd. pain or urinary symptoms. Quickening noted. Reviewed: PTL s/s-LOF/abd pain/VB, when to seek emergent care. discomforts, self help measures. FM and when to call for further evaluation. Encouraged a healthy well balanced diet, regular walking/exercise in . Hydrate well, 8-10 glasses of water daily. The ultrasound was not booked for FAS plans to proceed for that will be made today. Flu vaccine today. Educated on and support classes. RTO 4. Visit Date: 06/11/23 Last Updated by: Ariadne Campos CNM Patient is here for her 15 week return OB appointment. She says she is feeling well and doing well she is not having any problems with urination. Her non clean dipstick did show some leukocytes but this is to be expected on a non clean specimen. She had her nuchal translucency ultrasound and that was reassuring and she also had the genetic testing and it was low risk for Down syndrome and trisomy 18. I reviewed diet with her she is craving lots of candy and we discussed moderation and trying not to gain a lot of weight and avoiding excess sugar. She is currently not working because the various reasons suggested continuing staying active and may be considering part-time employment to the season. Her TSH did not get added to last visit's labs. If results can not be found they can be done along with her AFP at the next visit. I am ordering the AFP for the next visit and also her anatomy survey for about 5 weeks from now to be done at [facility]. Reviewed that if all is normal we will need to do any other ultrasounds after that. Her other labs were all within normal limits as well. Reviewed her normal growth and expectations. GONSALO 4 weeks Visit Date: 05/14/23 Last Updated by: Ariadne Campos CNM Patient is here for a new OB physical visit. She had a sure LMP of 731. She had some spotting right after of test was positive so she was seen in the emergency room and had ended up having 3 ultrasounds because the was so early she has a history of to SABs 1 extremely early and 1 1st trimester in the past. She moved here in the last several months from [place] she is on medicine for hypothyroidism and had it prescribed for her also at the [facility] though she is not sure who her primary care provider is yet. That is where she went for the test when she was nauseous as well. She is happy about the . She has her sister in law with her for the visit. She had her blood work done this morning and her 1 hour GTT is within normal limits at 101 other labs are still pending TSH was added to the labs during this visit. PE was done hirsutisum noted. Patient thought that she had had a Pap smear done in past because of previous pelvic exams but there is none in the system and if she had Pap smears done they were in [place]. Cervix it appears nulliparous though it was very difficult to reach and she needed a large long Graves speculum. Cervix is somewhat reddened with multiple raised red bumps on cervix friable with Pap. Will await Pap smear, requested reflex testing. Unable to auscultate heart. Patient is 11 weeks and 1 day by dates, however 10 weeks and 5 days by ultrasound,( though computer calculates it at 10 weeks 3 days.). Patient sent for stat ultrasound to ascertain viability of . Patient to return here after ultrasound is read stat. Ultrasound was done today crown-rump length consistent with 11 weeks 4 days which is much more consistent with her sure LMP. The outlying ultrasound at 5 weeks and 6 weeks are not consistent with either I am adjusting HAY to her sure LMP which is consistent with today's ultrasound. Patient is very very happy with the ultrasound results which show a viable in the fetus was moving and she got good pictures. I asked her to call in 2 days if she has not heard about her nuchal translucency ultrasound, so that can be scheduled at the appropriate time if it has not already been scheduled. Additionally I discussed taking baby aspirin twice daily secondary to high BMI. Discussed the potential hope for preventative aspect to prevent preeclampsia. Additionally discussed tempering weight gain so that she maintains a healthy balanced diet and minimizes weight gain. Visit Date: 05/08/23 Last Updated by: Anastasia Santos LPN Tyson is here with her sister-in law Hilary today, for her Nurse intake. LMP02/25/23 EDD12/03/23. HAY by u/s on 04/16/23 @6.2 wks =HAY of 12/07/23. Pt has had 2 previous miscarriages. She and her s.o. are very happy about the . She has recently moved here from [place]. Pt is on medication for Hypothyroidism, she also has a mat fh of diabetes and will be getting an early 1 hr gtt with her labs. Pt is currently working, and was given an HAY note and lifting restriction note. Pt has been vaccinated for Covid19 and received 1 booster also. Discussed flu vaccinne with pt also and aware we will offer to her when they come in. Pt is aware that our birthing center is closed and she will be delivering [place] [facility], and also if she becomes H.R. at any point she would be transferred to a [facility] practice. Discussed with pt the NT u/s and will schedule at [facility]. Discussed next appt will be in office with CNM for her OB physical, and FOB welcome to come to hear heartbeat. Discuused any issues with and need for ED she would be directed to [facility]. Discussed how to reach cushion stuffer provider after hours. Labs ordered, OB PHYS scheduled. Discussed and given packet. Coding Level of Care Code Alejandro Diagnoses Abnormal glucose affecting O99.810 Assessment & Plan Assessment & Plan (1) Abnormal glucose affecting : Code(s): O99.810 - Abnormal glucose complicating Orders: Orders Glucose Tolerance 3 Hour Today O99.810 - Abnormal glucose complicating
== END 2023-09-20 09:28 | disposition home or self-care (01) ==
LOC: HO.HWS 08:55
PROVIDERS: Visit Provider Advanced Practice Midwife
DX: O99.810 Abnormal glucose complicating pregnancy (principal)
CPT/HCPCS: 25942

== ENCOUNTER → 2023-09-20 08:55 | Outpatient (BNVA) | payer MEDICAID, SELFPAY | PROVIDERS: Visit Provider Advanced Practice Midwife | DX: O99.810 Abnormal glucose complicating pregnancy (principal); Z3A.29 29 weeks gestation of pregnancy | CPT/HCPCS: 99212 ==

== ENCOUNTER 2023-09-27 08:56 | Outpatient (REF) | payer MEDICAID, SELFPAY ==
[2023-09-27 09:49] LABS: Glucose Fasting 94 mg/dL (60-99)
[2023-09-27 11:12] LABS: Glucose 1 Hour 147 mg/dL
[2023-09-27 12:31] LABS: Glucose 2 Hour 129 mg/dL
[2023-09-27 14:22] LABS: Glucose 3 Hour 97 mg/dL
== END 2023-09-27 08:57 | disposition home or self-care (01) ==
LOC: HO.LAB 08:56
PROVIDERS: Visit Provider Advanced Practice Midwife
DX: O99.810 Abnormal glucose complicating pregnancy (principal)
CPT/HCPCS: 36415; 82951

== ENCOUNTER 2023-10-04 10:11 | Outpatient (AMB) | payer MEDICAID, SELFPAY ==
--- NOTE | 2023-10-04 10:28 | MHC.OFFVISPN ---
Intake Vital Signs 10/04/23 10:31 Height 5 ft 2 in Weight 240 lb BMI 43.9 BP 112/64 Intake Visit Reasons: GONSALO Information Interpreted: non-clinical & clinical Net Applications Developer: Net Applications Developer Present Accompanied by: Self / Same As Patient Allergies famotidine [From Pepcid] Allergy (Verified 10/04/23 10:32) Rash Is last menstrual period known: Yes Last menstrual period: 02/25/23 Patient : Yes (due date 12/02/2023) PFSH Medical History (Updated 10/04/23 @ 11:37 by Kerrie Tejada CNM) Obesity affecting Hypothyroidism Surgical History History of cholecystectomy Family History Maternal Grandmother Diabetes Uterus cancer Social History Household Members: Spouse Household Members Other:: brother in law Both parents involved: Yes Caregiver staying overnight: No Housing: Apartment Alcohol intake: never Agree to transfusion: Yes Current occupational status: employed 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 Date GA/Weeks Outcome Route Wt Inf Gender Labor Kareen Anesthesia Location Provider Complicate 04/03/21 12 spontaneous 08/06/22 4 spontaneous Visit HAY Calculator Estimated Delivery Date Method Current WG Current Estimate 12/02/23 LMP (Certain) 31w 4d Other Estimates 12/07/23 Ultrasound #1 30w 6d 11/29/23 Ultrasound #2 32w 0d Expected Delivery Route/Plan Vaginal Specific Issues/Plans 22 yr. old ? ? G 3?P 0020? ? ?LMP: 02/25/23 EDC: 12/07/23 by 6 2/7 w u/s? ? ?Blood type: A pos Problem List: 1. fam hx dm, bmi>30- early moi=989, asa after first tri.... 2. hx of sabs x2, first tri spotting, preg confirmed w quants and 3 U/Ss... 3. hypothyroid, on levothyroxine, TSH=1.55 on 08/2023 (needs a PCP) 4. AP testinrd tri growth US, Biweekly NST/VIOLA. -34wks Testing: Panorama/and or First Tri screen: ? ?risk-ordered..... NT scan: ordered.... AFP: neg Quad screen, FAS: nl-07/31/23 Glucose: early =101?28 wk glucose: ?137- 3hrgtt=nl CBC 1st Tri: ? 28 wk. CBC: GBS: Vaccinations: Flu: 07/09/23 Covid: vaccinated x 3 Tdap: given 10/04/23 Education/Services WIC: enrolled CBE: [facility] classes Breast feeding classes: WIC Social Supports/Stressors: Living situation: partner Cezar. Plan is a future moved back to [place] due to lack of supports in this region. She is happy with the healthcare provided a [place] at the time being. Supports: Cezar Work/school: none Transportation: own car Labor, and Concerns: Labor support: Cezar, mom Plan: Feeding Plans: breast feeding control: OB Visit Log Initial Weight: 195 lb Date <del>?</del> EGA Weight Gest Week Fundal Ht Present FHR move Efface % Edema BP PrePreg We Weight GTT <del>?</del> Glucose LV Protein Blood Type 05/08/23 <del>?</del> 10w 2d 214 lb 4 oz (+19 lb 4 oz) 214 lb 4 oz <del>?</del> 05/14/23 <del>?</del> 11w 1d 213 lb (+18 lb) 0 120/68 213 lb <del>?</del> 06/11/23 <del>?</del> 15w 1d 219 lb (+24 lb) 15 150 122/64 219 lb <del>?</del> 07/09/23 <del>?</del> 19w 1d 225 lb (+30 lb) 20 150 124/56 225 lb <del>?</del> 08/09/23 <del>?</del> 23w 4d 224 lb (+29 lb) 24 140 active 110/68 224 lb <del>?</del> 09/06/23 <del>?</del> 27w 4d 236 lb (+41 lb) 31 140 active 110/60 236 lb <del>?</del> 09/20/23 <del>?</del> 29w 4d 238 lb 3 oz (+43 lb 3 oz) 32 150 active 111/66 238 lb 3 oz <del>?</del> 10/04/23 <del>?</del> 31w 4d 240 lb (+45 lb) 33 150 active 112/64 240 lb <del>?</del> Notes Visit Date: 10/04/23 Last Updated by: Kerrie Tejada CNM Note author: Kerrie Tejada CNM. 32.2wk. GONSALO. Taking PNV, Doing well with no concerns. Good appetite, stays well hydrated. Denies any LOF, VB, abd. pain or urinary symptoms. Good FM. She was cancelled for a PCP appt. now searching for a provider. Reviewed: Tdap given. PTL s/s-LOF/Ctx's/VB, when to seek emergent care. discomforts, self help measures. FMC and when to call for further evaluation. Encouraged a healthy well balanced diet, regular walking/exercise in . Hydrate well, 8-10 glasses of water daily. Third trimester ultrasound for growth ordered and request for AP testing starting at 34 weeks for elevated BMI RTO 2wks. Visit Date: 09/20/23 Last Updated by: Kerrie Tejada CNM Note author: Kerrie Tejada CNM. 29.4wk. GONSALO. Taking PNV/BASA, Doing well with no concerns. Good appetite, stays well hydrated. Denies any LOF, VB, abd. pain or urinary symptoms. 0eu=766, plan 3hr gtt. EPDS=10, no on #10. Advised counseling and to notify office if any increase concerns, symptoms. Back ache improved w/stretches, heat. CBE link for [facility] given. Reviewed: PTL s/s-LOF/Ctx's/VB, when to seek emergent care. discomforts, self help measures. FM and when to call the office for further eval. Encouraged a healthy well balanced diet, regular walking/exercise in . Hydrate well, 8-10 glasses of water daily. S>D, consider US n/v. RTO 2wks. Visit Date: 09/06/23 Last Updated by: Ariadne Campos CNM Is reappointed today to the [facility] office. Patient is here at 27 weeks 4 days because of the rescheduling she had intended to do the lab work before her visit at the [facility] office but had to rearrange her day she will get the labs done on Saturday. Some discussion spent trying to ensure/discover who patient's providers are now to manage her thyroid issues and it develops that the person she was going to see has been rescheduled so she does not have an appointment pending for that there is of TSH with reflex T4 ordered a in the system along with her CBC glucose screen and syphilis screen so she will do those tests on Saturday now. We will manage accordingly to the results palpation of thyroid felt within normal limits today by this provider. Reviewed her normal FA S ultrasound that was done in July at [facility]. Discussed moderation of weight gain if possible. Discussed reasons to call. Also reviewed upcoming vaccinations and to consider the Tdap and vaccine for RSV which would need to be obtained at a pharmacy. Fundal height 31 secondary to maternal adipose. The patient's only complaint was right sacroiliac pain. Reviewed several stretches that can be of some benefit and recommend trying them every day to see if that will help. We will see her in 2 weeks. She does have transportation to [facility]. Visit Date: 08/09/23 Last Updated by: Kerrie Tejada CNM Note author: Kerrie Tejada CNM. 23.2wk. GONSALO. Taking PNV, Doing well with no concerns. Good appetite, stays well hydrated. Denies any LOF, VB, abd. pain or urinary symptoms. Good FM. Happy she is having a boy. Reviewed: PTL s/s-LOF/Ctx's/VB, or PEC, when to seek emergent care. FMC and when to call for further evaluation. Encouraged a healthy well balanced diet, regular walking/exercise in . Hydrate well, 8-10 glasses of water daily. 28 wk labs and thyroid tests at n/v. RTO 4wks. Visit Date: 07/09/23 Last Updated by: Kerrie Tejada CNM Note author: Kerrie Tejada CNM. 19.1wk. GONSALO. Taking PNV and BASA, Doing well with concerns: After coughing forcefully she noted some vaginal spotting she denies any pain discharge or any other further episodes. Good appetite, stays well hydrated. Denies any LOF, VB, abd. pain or urinary symptoms. Quickening noted. Reviewed: PTL s/s-LOF/abd pain/VB, when to seek emergent care. discomforts, self help measures. FM and when to call for further evaluation. Encouraged a healthy well balanced diet, regular walking/exercise in . Hydrate well, 8-10 glasses of water daily. The ultrasound was not booked for FAS plans to proceed for that will be made today. Flu vaccine today. Educated on and support classes. RTO 4. Visit Date: 06/11/23 Last Updated by: Ariadne Campos CNM Patient is here for her 15 week return OB appointment. She says she is feeling well and doing well she is not having any problems with urination. Her non clean dipstick did show some leukocytes but this is to be expected on a non clean specimen. She had her nuchal translucency ultrasound and that was reassuring and she also had the genetic testing and it was low risk for Down syndrome and trisomy 18. I reviewed diet with her she is craving lots of candy and we discussed moderation and trying not to gain a lot of weight and avoiding excess sugar. She is currently not working because the various reasons suggested continuing staying active and may be considering part-time employment to the season. Her TSH did not get added to last visit's labs. If results can not be found they can be done along with her AFP at the next visit. I am ordering the AFP for the next visit and also her anatomy survey for about 5 weeks from now to be done at [facility]. Reviewed that if all is normal we will need to do any other ultrasounds after that. Her other labs were all within normal limits as well. Reviewed her normal growth and expectations. GONSALO 4 weeks Visit Date: 05/14/23 Last Updated by: Ariadne Campos CNM Patient is here for a new OB physical visit. She had a sure LMP of 731. She had some spotting right after of test was positive so she was seen in the emergency room and had ended up having 3 ultrasounds because the was so early she has a history of to SABs 1 extremely early and 1 1st trimester in the past. She moved here in the last several months from [place] she is on medicine for hypothyroidism and had it prescribed for her also at the [facility] though she is not sure who her primary care provider is yet. That is where she went for the test when she was nauseous as well. She is happy about the . She has her sister in law with her for the visit. She had her blood work done this morning and her 1 hour GTT is within normal limits at 101 other labs are still pending TSH was added to the labs during this visit. PE was done hirsutisum noted. Patient thought that she had had a Pap smear done in past because of previous pelvic exams but there is none in the system and if she had Pap smears done they were in [place]. Cervix it appears nulliparous though it was very difficult to reach and she needed a large long Graves speculum. Cervix is somewhat reddened with multiple raised red bumps on cervix friable with Pap. Will await Pap smear, requested reflex testing. Unable to auscultate heart. Patient is 11 weeks and 1 day by dates, however 10 weeks and 5 days by ultrasound,( though computer calculates it at 10 weeks 3 days.). Patient sent for stat ultrasound to ascertain viability of . Patient to return here after ultrasound is read stat. Ultrasound was done today crown-rump length consistent with 11 weeks 4 days which is much more consistent with her sure LMP. The outlying ultrasound at 5 weeks and 6 weeks are not consistent with either I am adjusting HAY to her sure LMP which is consistent with today's ultrasound. Patient is very very happy with the ultrasound results which show a viable in the fetus was moving and she got good pictures. I asked her to call in 2 days if she has not heard about her nuchal translucency ultrasound, so that can be scheduled at the appropriate time if it has not already been scheduled. Additionally I discussed taking baby aspirin twice daily secondary to high BMI. Discussed the potential hope for preventative aspect to prevent preeclampsia. Additionally discussed tempering weight gain so that she maintains a healthy balanced diet and minimizes weight gain. Visit Date: 05/08/23 Last Updated by: Anastasia Santos LPN Tyson is here with her sister-in law Hilary today, for her Nurse intake. LMP02/25/23 EDD12/03/23. HAY by u/s on 04/16/23 @6.2 wks =HAY of 12/07/23. Pt has had 2 previous miscarriages. She and her s.o. are very happy about the . She has recently moved here from [place]. Pt is on medication for Hypothyroidism, she also has a mat fh of diabetes and will be getting an early 1 hr gtt with her labs. Pt is currently working, and was given an HAY note and lifting restriction note. Pt has been vaccinated for Covid19 and received 1 booster also. Discussed flu vaccinne with pt also and aware we will offer to her when they come in. Pt is aware that our birthing center is closed and she will be delivering at [facility], and also if she becomes H.R. at any point she would be transferred to a [facility] practice. Discussed with pt the NT u/s and will schedule at [facility]. Discussed next appt will be in office with CNM for her OB physical, and FOB welcome to come to hear heartbeat. Discuused any issues with and need for ED she would be directed to [facility]. Discussed how to reach recreation director provider after hours. Labs ordered, OB PHYS scheduled. Discussed and given packet. Immunizations Boostrix Tdap 2.5 Lf unit-8 mcg-5 Lf/0.5 mL intramuscular syringe Performing Provider: Kerrie Tejada CNM Performing Location: [facility] Administered by: Delia Glasgow on 10/04/23 11:23 Dose Route Admin Location Dispensed Lot Number Expiration Date [facility] Director Data Management 0.5 mL IM Left Deltoid 0.5 mL [id number] 04/23/25 [id number] [employer] VIS Given Date VIS Provided VIS Publication Date 10/04/23 Single Vaccine 21 Eligibility Eligibility Date Funding Source Not [facility] Eligible 10/04/23 Private Coding Level of Care Code [place] Diagnoses Obesity affecting O99.210 Assessment & Plan Assessment & Plan (1) Obesity affecting : Code(s): O99.210 - Obesity complicating , unspecified trimester Orders: Orders US OB follow up Today O99.210 - Obesity complicating , unspecified trimester TDaP Immunization Today Z23 - Encounter for immunization
[2023-10-04 10:31] VITALS: BP 112/64; BMI 43.9
== END 2023-10-04 11:18 | disposition home or self-care (01) ==
LOC: HO.HWS 10:11
PROVIDERS: Visit Provider Advanced Practice Midwife
DX: O99.210 Obesity complicating pregnancy, unspecified trimester (principal); Z23 Encounter for immunization
CPT/HCPCS: 25942

== ENCOUNTER → 2023-10-04 10:11 | Outpatient (BNVA) | payer MEDICAID, SELFPAY | PROVIDERS: Visit Provider Advanced Practice Midwife | DX: O99.213 Obesity complicating pregnancy, third trimester (principal); Z23 Encounter for immunization; E66.9 Obesity, unspecified; Z3A.31 31 weeks gestation of pregnancy | CPT/HCPCS: 90715; 96360; 99212 ==

== ENCOUNTER 2023-10-18 12:49 | Outpatient (AMB) | payer MEDICAID, SELFPAY ==
[2023-10-18 13:01] VITALS: BP 108/66; BMI 43.5
--- NOTE | 2023-10-18 13:01 | A.OFFVISPN_ITS ---
Intake Vital Signs 10/18/23 13:01 Height 5 ft 2 in Weight 238 lb BMI 43.5 BP 108/66 Intake Visit Reasons: GONSALO Offc Spec Required: No Information Interpreted: non-clinical & clinical Accompanied by: Self / Same As Patient Allergies famotidine [From Pepcid] Allergy (Verified 10/18/23 13:11) Rash Medication List - Last Reconciled 10/18/23 by Ariadne Campos CNM aspirin (Adult Aspirin Regimen) 162 mg (2 x 81 mg) PO DAILY levothyroxine 50 mcg PO DAILY PNV,calcium 93-johh-vsjqg acid 27 mg iron- 1 mg ( Vitamins Plus Low Iron) 1 tab PO DAILY Patient : Yes [facility] Medical History (Updated 10/07/23 @ 09:48 by Delia Glasgow) Maternal obesity affecting , antepartum Hypothyroidism Surgical History History of cholecystectomy Family History Maternal Grandmother Diabetes Uterus cancer Social History Household Members: Spouse Household Members Other:: brother in law Both parents involved: Yes Caregiver staying overnight: No Housing: Apartment Alcohol intake: never Agree to transfusion: Yes Current occupational status: employed 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 Date GA/Weeks Outcome Route Wt Inf Gender Labor Kareen Anesthesia Location Provider Complicate 04/03/21 12 spontaneous 08/06/22 4 spontaneous Visit HAY Calculator Estimated Delivery Date Method Current WG Current Estimate 12/02/23 LMP (Certain) 33w 4d Other Estimates 12/07/23 Ultrasound #1 32w 6d 11/29/23 Ultrasound #2 34w 0d Expected Delivery Route/Plan Vaginal Specific Issues/Plans 22 yr. old ? ? G 3?P 0020? ? ?LMP: 02/25/23 EDC: 12/07/23 by 6 2/ w u/s? ? ?Blood type: A pos Problem List: 1. fam hx dm, bmi>30- early ste=555, asa after first tri.... 2. hx of sabs x2, first tri spotting, preg confirmed w quants and 3 U/Ss... 3. hypothyroid, on levothyroxine, TSH=1.55 on 08/2023 (needs a PCP) 4. AP testinrd tri growth US, Biweekly NST/VIOLA. -34wks.-( 10/18/23- patient informs me that she was told that she was to be transferred to [facility] and has an appointment for an intake there as well as testing for well-being next week at [facility].-mo'b) Testing: Panorama/and or First Tri screen: ? ?risk-ordered..... NT scan: ordered.... AFP: neg Quad screen, FAS: nl-07/31/23 Glucose: early =101?28 wk glucose: ?137- 3hrgtt=nl CBC 1st Tri: ? 28 wk. CBC: GBS: Vaccinations: Flu: 07/09/23 Covid: vaccinated x 3 Tdap: given 10/04/23 Education/Services WIC: enrolled CBE: [facility] classes Breast feeding classes: [facility] Social Supports/Stressors: Living situation: partner Cezar. Plan is a future moved back to [place] due to lack of supports in this region. She is happy with the healthcare provided a [place] at the time being. Supports: Cezar Work/school: none Transportation: own car Labor, and Concerns: Labor support: Cezar, mom Plan: Infant Feeding Plans: breast feeding control: OB Visit Log Initial Weight: 195 lb Date -?-?-?-?-?-?-?-?-?-?-?-?- EGA Weight Gest Week Fundal Ht Present FHR move Efface % Edema BP PrePreg We Weight GTT -?-?-?-?-?-?-?-?-?-?-?-?- Glucose LV Protein Blood Type 05/08/23 -?-?-?-?-?-?-?-?-?-?-?-?- 10w 2d 214 lb 4 oz (+19 lb 4 oz) 214 lb 4 oz -?-?-?-?-?-?-?-?-?-?-?-?- 05/14/23 -?-?-?-?-?-?-?-?-?-?-?-?- 11w 1d 213 lb (+18 lb) 0 120/68 213 lb -?-?-?-?-?-?-?-?-?-?-?-?- 06/11/23 -?-?-?-?-?-?-?-?-?-?-?-?- 15w 1d 219 lb (+24 lb) 15 150 122/64 219 l b -?-?-?-?-?-?-?-?-?-?-?-?- 07/09/23 -?-?-?-?-?-?-?-?-?-?-?-?- 19w 1d 225 lb (+30 lb) 20 150 124/56 225 lb -?-?-?-?-?-?-?-?-?-?-?-?- 08/09/23 -?-?-?-?-?-?-?-?-?-?-?-?- 23w 4d 224 lb (+29 lb) 24 140 active 110/68 224 lb -?-?-?-?-?-?-?-?-?-?-?-?- 09/06/23 -?-?-?-?-?-?-?-?-?-?-?-?- 27w 4d 236 lb (+41 lb) 31 140 active 110/60 236 lb -?-?-?-?-?-?-?-?-?-?-?-?- 09/20/23 -?-?-?-?-?-?-?-?-?-?-?-?- 29w 4d 238 lb 3 oz (+43 lb 3 oz) 32 150 active 111/66 238 lb 3 oz -?-?-?-?-?-?-?-?-?-?-?-?- 10/04/23 -?-?-?-?-?-?-?-?-?-?-?-?- 31w 4d 240 lb (+45 lb) 33 150 active 112/64 240 lb -?-?-?-?-?-?-?-?-?-?-?-?- 10/18/23 -?-?-?-?-?-?-?-?-?-?-?-?- 33w 4d 238 lb (+43 lb) 35 150 active 108/66 238 lb -?-?-?-?-?-?-?-?-?-?-?-?- Notes Visit Date: 10/18/23 Last Updated by: Ariadne Campos CNM Patient is being seen today at the [facility]. She tells me that she has been told that she is to be transferring care to [facility] completely and she starting Saturday with an ultrasound and maybe a nonstress test at [facility] and then Saturday she has an intake appointment with somebody by phone. She said this was arranged at the previous visit. She says the baby is moving well and she is eating good and everything is good but she has been nervous about how much stress is affecting her baby to family tragedies happened within a week of each other her 's brother was killed in a motorcycle accident in [place] and then her father got shot earlier in the week also in [place] and it was very scary and he has a broken leg that needs to have surgery. He reassured her on the phone that he was okay and that is helping. Patient to sign consent to have records transferred if that has not already occurred to ensure continuity of care. We will see her in 2 weeks if full transfer has not yet occurred. Visit Date: 10/04/23 Last Updated by: Kerrie Tejada CNM Note author: Kerrie Tejada CNM. 32.2wk. GONSALO. Taking PNV, Doing well with no concerns. Good appetite, stays well hydrated. Denies any LOF, VB, abd. pain or urinary symptoms. Good FM. She was cancelled for a PCP appt. now searching for a provider. Reviewed: Tdap given. PTL s/s-LOF/Ctx's/VB, when to seek emergent care. discomforts, self help measures. FMC and when to call for further evaluation. Encouraged a healthy well balanced diet, regular walking/exercise in . Hydrate well, 8-10 glasses of water daily. Third trimester ultrasound for growth ordered and request for AP testing starting at 34 weeks for elevated BMI RTO 2wks. Visit Date: 09/20/23 Last Updated by: Kerrie Tejada CNM Note author: Kerrie Tejada CNM. 29.4wk. GONSALO. Taking PNV/BASA, Doing well with no concerns. Good appetite, stays well hydrated. Denies any LOF, VB, abd. pain or urinary symptoms. 0do=018, plan 3hr gtt. EPDS=10, no on #10. Advised counseling and to notify office if any increase concerns, symptoms. Back ache improved w/stretches, heat. CBE link for [facility] given. Reviewed: PTL s/s-LOF/Ctx's/VB, when to seek emergent care. discomforts, self help measures. FM and when to call the office for further eval. Encouraged a healthy well balanced diet, regular walking/exercise in . Hydrate well, 8-10 glasses of water daily. S>D, consider US n/v. RTO 2wks. Visit Date: 09/06/23 Last Updated by: Ariadne Campos CNM Is reappointed today to the [facility] office. Patient is here at 27 weeks 4 days because of the rescheduling she had intended to do the lab work before her visit at the [facility] office but had to rearrange her day she will get the labs done on Saturday. Some discussion spent trying to ensure/discover who patient's providers are now to manage her thyroid issues and it develops that the person she was going to see has been rescheduled so she does not have an appointment pending for that there is of TSH with reflex T4 ordered a in the system along with her CBC glucose screen and syphilis screen so she will do those tests on Saturday now. We will manage accordingly to the results palpation of thyroid felt within normal limits today by this provider. Reviewed her normal FA S ultrasound that was done in July at [facility]. Discussed moderation of weight gain if possible. Discussed reasons to call. Also reviewed upcoming vaccinations and to consider the Tdap and vaccine for RSV which would need to be obtained at a pharmacy. Fundal height 31 secondary to maternal adipose. The patient's only complaint was right sacroiliac pain. Reviewed several stretches that can be of some benefit and recommend trying them every day to see if that will help. We will see her in 2 weeks. She does have transportation to [facility]. Visit Date: 08/09/23 Last Updated by: Kerrie Tejada CNM Note author: Kerrie Tejada CNM. 23.2wk. GONSALO. Taking PNV, Doing well with no concerns. Good appetite, stays well hydrated. Denies any LOF, VB, abd. pain or urinary symptoms. Good FM. Happy she is having a boy. Reviewed: PTL s/s-LOF/Ctx's/VB, or PEC, when to seek emergent care. FMC and when to call for further evaluation. Encouraged a healthy well balanced diet, regular walking/exercise in . Hydrate well, 8-10 glasses of water daily. 28 wk labs and thyroid tests at n/v. RTO 4wks. Visit Date: 07/09/23 Last Updated by: Kerrie Tejada CNM Note author: Kerrie Tejada CNM. 19.1wk. GONSALO. Taking PNV and BASA, Doing well with concerns: After coughing forcefully she noted some vaginal spotting she denies any pain discharge or any other further episodes. Good appetite, stays well hydrated. Denies any LOF, VB, abd. pain or urinary symptoms. Quickening noted. Reviewed: PTL s/s-LOF/abd pain/VB, when to seek emergent care. discomforts, self help measures. FM and when to call for further evaluation. Encouraged a healthy well balanced diet, regular walking/exercise in . Hydrate well, 8-10 glasses of water daily. The ultrasound was not booked for FAS plans to proceed for that will be made today. Flu vaccine today. Educated on and support classes. RTO 4. Visit Date: 06/11/23 Last Updated by: Ariadne Campos CNM Patient is here for her 15 week return OB appointment. She says she is feeling well and doing well she is not having any problems with urination. Her non clean dipstick did show some leukocytes but this is to be expected on a non clean specimen. She had her nuchal translucency ultrasound and that was reassuring and she also had the genetic testing and it was low risk for Down syndrome and trisomy 18. I reviewed diet with her she is craving lots of candy and we discussed moderation and trying not to gain a lot of weight and avoiding excess sugar. She is currently not working because the various reasons suggested continuing staying active and may be considering part-time employment to the season. Her TSH did not get added to last visit's labs. If results can not be found they can be done along with her AFP at the next visit. I am ordering the AFP for the next visit and also her anatomy survey for about 5 weeks from now to be done at [facility]. Reviewed that if all is normal we will need to do any other ultrasounds after that. Her other labs were all within normal limits as well. Reviewed her normal growth and expectations. GONSALO 4 weeks Visit Date: 05/14/23 Last Updated by: Ariadne Campos CNM Patient is here for a new OB physical visit. She had a sure LMP of 731. She had some spotting right after of test was positive so she was seen in the emergency room and had ended up having 3 ultrasounds because the was so early she has a history of to SABs 1 extremely early and 1 1st trimester in the past. She moved here in the last several months from [place] she is on medicine for hypothyroidism and had it prescribed for her also at the [facility] though she is not sure who her primary care provider is yet. That is where she went for the test when she was nauseous as well. She is happy about the . She has her sister in law with her for the visit. She had her blood work done this morning and her 1 hour GTT is within normal limits at 101 other labs are still pending TSH was added to the labs during this visit. PE was done hirsutisum noted. Patient thought that she had had a Pap smear done in past because of previous pelvic exams but there is none in the system and if she had Pap smears done they were in [place]. Cervix it appears nulliparous though it was very difficult to reach and she needed a large long Graves speculum. Cervix is somewhat reddened with multiple raised red bumps on cervix friable with Pap. Will await Pap smear, requested reflex testing. Unable to auscultate heart. Patient is 11 weeks and 1 day by dates, however 10 weeks and 5 days by ultrasound,( though computer calculates it at 10 weeks 3 days.). Patient sent for stat ultrasound to ascertain viability of . Patient to return here after ultrasound is read stat. Ultrasound was done today crown-rump length consistent with 11 weeks 4 days which is much more consistent with her sure LMP. The outlying ultrasound at 5 weeks and 6 weeks are not consistent with either I am adjusting HAY to her sure LMP which is consistent with today's ultrasound. Patient is very very happy with the ultrasound results which show a viable in the fetus was moving and she got good pictures. I asked her to call in 2 days if she has not heard about her nuchal translucency ultrasound, so that can be scheduled at the appropriate time if it has not already been scheduled. Additionally I discussed taking baby aspirin twice daily secondary to high BMI. Discussed the potential hope for preventative aspect to prevent preeclampsia. Additionally discussed tempering weight gain so that she maintains a healthy balanced diet and minimizes weight gain. Visit Date: 05/08/23 Last Updated by: Anastasia Santos LPN Tyson is here with her sister-in law Hilary today, for her Nurse intake. LMP02/25/23 EDD12/03/23. HAY by u/s on 04/16/23 @6.2 wks =HAY of 12/07/23. Pt has had 2 previous miscarriages. She and her s.o. are very happy about the . She has recently moved here from [place]. Pt is on medication for Hypothyroidism, she also has a mat fh of diabetes and will be getting an early 1 hr gtt with her labs. Pt is currently working, and was given an HAY note and lifting restriction note. Pt has been vaccinated for Covid19 and received 1 booster also. Discussed flu vaccinne with pt also and aware we will offer to her when they come in. Pt is aware that our birthing center is closed and she will be delivering at [facility], and also if she becomes [facility] at any point she would be transferred to a [facility] practice. Discussed with pt the NT u/s and will schedule at [facility]. Discussed next appt will be in office with CNM for her OB physical, and FOB welcome to come to hear heartbeat. Discuused any issues with and need for ED she would be directed to [facility]. Discussed how to reach customer acquisition manager provider after hours. Labs ordered, OB PHYS scheduled. Discussed and given packet. Coding Level of Care Code [place] Diagnoses Maternal obesity affecting , antepartum O99.210 Supervision of normal first Z34.00 Assessment & Plan Assessment & Plan (1) Maternal obesity affecting , antepartum: Code(s): O99.210 - Obesity complicating , unspecified trimester Category: Medical (2) Supervision of normal first : Code(s): Z34.00 - Encounter for supervision of normal first , unspecified trimester Category: Medical Orders: Orders AMB Urinalysis Automated Today Z34.00 - Encounter for supervision of normal first , unspecified trimester
== END 2023-10-18 13:38 | disposition home or self-care (01) ==
LOC: HO.HWS 12:49
PROVIDERS: Visit Provider Advanced Practice Midwife
DX: O99.210 Obesity complicating pregnancy, unspecified trimester (principal); Z34.00 Encounter for supervision of normal first pregnancy, unspecified trimester
CPT/HCPCS: 25942

== ENCOUNTER → 2023-10-18 12:49 | Outpatient (BNVA) | payer MEDICAID, SELFPAY | PROVIDERS: Visit Provider Advanced Practice Midwife | DX: O99.210 Obesity complicating pregnancy, unspecified trimester (principal); Z68.43 Body mass index [BMI] 50.0-59.9, adult; Z3A.33 33 weeks gestation of pregnancy | CPT/HCPCS: 99212 ==